=== PATIENT | female | born 1970 | race Hispanic/Latino ===

== ENCOUNTER 2019-01-14 11:05 | Emergency (ER) | payer BC, OTHER ==
[~2019-01-14] VITALS: Ht 165.1 cm; Wt 130.2 kg
[2019-01-14] MEDS ORDERED: SODIUM CHLORIDE 0.9% 1000ML 1,000 ML IV STA ×2 (11:21→12:31)
[2019-01-14] MEDS ORDERED: FAMOTIDINE 20 MG/2 ML VIAL IV ONE (11:30)
[2019-01-14] MEDS ORDERED: ONDANSETRON HCL INJ 2MG/ML 2ML 2 MG/ML VIAL IV ONE (11:30)
--- NOTE | 2019-01-14 12:06 | NUR ---
RIGHT AC IV UNABLE TO FLUSH AFTER CT MACHINE TEST INJECTION. IV D/C, CATH INTACT. BLEEDING CONTROLLED, DRESSING APPLIED, DRY AND INTACT. SITE WITHOUT REDNESS, SWELLING OR DRAINAGE.
--- NOTE | 2019-01-14 12:52 | NUR ---
NOTIFIED DR GARDUNO LEFT AC IV NOT FLUSHING. STATES OK TO D/C IV FLUID ORDER AT THIS TIME.
--- OUTSIDE RECORDS SUMMARY | 2019-01-14 13:02 | XMS REPORT | Continuity of Care Document ---
Author Author Sanjuana jessee [facility] Interface Address Unknown Phone Unavailable Problems Problem Status Onset Date Classification Date Reported Comments Source Acute maxillary sinusitis 10/20/2016 Diagnosis 10/20/2016 [facility] Eustachian tube disorder 10/20/2016 Diagnosis 10/20/2016 [facility] Acute sinusitis 05/23/2016 Diagnosis 05/23/2016 [facility] Allergic rhinitis 05/23/2016 Diagnosis 05/23/2016 [facility] UNK Active 04/08/2016 [facility] Discharge Diagnosis: Generalized abdominal pain 03/21/2016 03/24/2016 [facility] Discharge Diagnosis: Vomiting, unspecified 03/21/2016 03/24/2016 [facility] Discharge Diagnosis: Diarrhea, unspecified 03/21/2016 03/24/2016 [facility] SOB Active 03/21/2016 [facility] Discharge Diagnosis: Vaginal bleeding 03/17/2016 03/20/2016 [facility] Discharge Diagnosis: Vaginal discharge 03/17/2016 03/20/2016 [facility] Discharge Diagnosis: Acute UTI 03/17/2016 03/20/2016 [facility] BLADDER PAIN Active 03/17/2016 [facility] Ovarian cystic mass Resolved Problem 04/14/2016 [facility] Sleep apnea<sup>1</sup> Resolved Problem 04/14/2016 Does not use CPAP [facility] Tear of vaginal muscle Active Problem 04/14/2016 [facility] Hypothyroidism Problem 10/20/2016 [facility] Acute Suppurative Otitis Media without Spontaneous Rupture of Ear Drum Problem 10/20/2016 [facility] Common Cold Problem 10/20/2016 [facility] Acute Sinusitis Problem 10/20/2016 [facility] Acute Tonsillitis Problem 10/20/2016 [facility] Acute Upper Respiratory Infection Problem 10/20/2016 [facility] Allergic Rhinitis Problem 10/20/2016 [facility] Influenza with Respiratory Manifestation Other than Pneumonia Problem 10/20/2016 [facility] Medications Medication Details Route Status Patient Instructions Ordering Provider Order Date Source Dexamethasone 4 mg, 1 mL, Route: IVP, Drug form: INJ, ONCE, Dosing Weight 115, kg, PRN Nausea & Vomiting, Start date: 04/11/16 13:48:00 CDTNotes: Concentration: 4mg/ml Inactive 04/11/2016 [facility] Ondansetron 4 mg, 2 mL, Route: IVP, Drug form: INJ, ONCE, Dosing Weight 115, kg, PRN Nausea & Vomiting, Start date: 04/11/16 13:48:00 CDTNotes: (Same as: Zofran) MEDICATION WASTE Product Size: 4 mg Pr oduct Wasted: ___ mg Inactive 04/11/2016 [facility] 72 HR Scopolamine 0.0139 MG/HR Transdermal Patch 1 patch, Route: TOP, Drug Form: ERFILM, Dosing Weight 115, kg, ONCE, Apply behind ear. Avoid use in elderly., Start date: 04/11/16 13:48:00 CDT, Stop date: 04/11/16 13:48:00 CDTNotes: Change patch every 72 hours (Same as: Transderm-Scop) Inactive 04/11/2016 [facility] Promethazine 6.25 mg, 0.25 mL, Route: IVPB, ONCE, Dosing Weight 115, kg, PRN Nausea & Vomiting, Start date: 04/11/16 13:48:00 CDTNotes: Do not give IV push. (Same as: Phenergan) Inactive 04/11/2016 [facility] Naloxone 0.4 mg, 1 mL, Route: IVP, Drug form: INJ, Q2MIN, Dosing Weight 115, kg, PRN Narcotic Reversal, Start date: 04/11/16 13:48:00 CDT, Duration: 8 doses or times, Stop date: Limited # of timesNotes: Same as Narcan Inactive 04/11/2016 [facility] Fentanyl 50 microgram, 1 mL, Route: IVP, Drug form: INJ, Q5Min, Dosing Weight 115, kg, PRN Pain Score 7-10, Start date: 04/11/16 13:48:00 CDT, Duration: 2 doses or times, Stop date: Limited # of timesNotes: ( Same as: Sublimaze) Preservative free. Inactive 04/11/2016 [facility] Flumazenil 0.2 mg, 2 mL, Route: IVP, Drug form: INJ, PRN, Dosing Weight 115, kg, PRN Benzodiazepine Reversal, Initial dose, Start date: 04/11/16 13:48:00 CDT, Duration: 30 day, Stop date: 05/11/16 13:47:00 CDTNotes: (Same as: Romazicon) Inactive 04/11/2016 [facility] 200 ACTUAT Albuterol 0.09 MG/ACTUAT Metered Dose Inhaler 2 puff, Route: INHALER, Drug Form: AERO/A, Dosing Weight 115, kg, Q5Min, PRN Wheezing, Start date: 04/11/16 13:48:00 CDT, Duration: 4 doses or times, Stop date: Limited # of timesNotes: Albuterol 90 microgram/inh 8gm HFA WASTE: Aerosol - Return to Pharmacy Same as: Mitch King Inactive 04/11/2016 [facility] Levalbuterol 0.63 mg, 3 mL, Route: NEB, Drug form: SOLN, Q20Min, Dosing Weight 115, kg, PRN Wheezing, Start date: 04/11/16 13:48:00 CDT, Duration: 4 doses or times, Stop date: Limited # of timesNotes: SEE RT DOCU MENTATION (Same as:Xopenex) Non-Formulary Inactive 04/11/2016 [facility] Albuterol 0.83 MG/ML Inhalant Solution 2.49 mg, 3 mL, Route: NEB, Drug form: SOLN, PRN, Dosing Weight 115, kg, PRN Respiratory Protocol, Start date: 04/11/16 13:48:00 CDT, Duration: 30 day, Stop date: 05/11/16 13:47:00 CDTNotes: SEE RT DOCUMENTATION (Same as: Provenyesica) Inactive 04/11/2016 [facility] Oxycodone 5 mg, 5 mL, Route: NG, Drug form: LIQ, Q4H, Dosing Weight 115, kg, PRN Pain Score 4-6, Start date: 04/11/16 13:48:00 CDT, Duration: 30 day, Stop date: 05/11/16 13:47:00 CDTNotes: (Same as: 'Roxicodone) Inactive 04/11/2016 [facility] Acetaminophen 1,000 mg, 2 tab, Route: PO, Drug form: TAB, ONCE, Dosing Weight 115, kg, PRN Pain Score 1-3, Start date: 04/11/16 13:48:00 CDT, Duration: 1 doses or times, Stop date: Limited # of timesNotes: Max acetam inophen 4000 mg/day (4 gm/day). (Same as: Tylenol Extra Strength) Inactive 04/11/2016 [facility] Labetalol 10 mg, 2 mL, Route: IVP, Drug form: INJ, Q5Min, Dosing Weight 115, kg, PRN Elevated BP, Start date: 04/11/16 13:48:00 CDT, Duration: 5 doses or times, Stop date: Limited # of timesNotes: (Same as: Normo dyne, Trandate) Push over 2 minutes Give bolus over 2-3 minutes. Inactive 04/11/2016 [facility] Hydralazine 10 mg, 0.5 mL, Route: IVP, Drug form: INJ, Q20Min, Dosing Weight 115, kg, PRN Elevated BP, Start date: 04/11/16 13:48:00 CDT, Duration: 2 doses or times, Stop date: Limited # of timesNotes: (Same as: Apresoline) Push over 5 minutes Inactive 04/11/2016 [facility] Hydromorphone 0.5 mg, 0.5 mL, Route: IVP, Drug form: INJ, Q5Min, Dosing Weight 115, kg, PRN Pain Score 7-10, Start date: 04/11/16 13:48:00 CDT, Duration: 4 doses or times, Stop date: Limited # of times Inactive 04/11/2016 [facility] ceFAZolin (ANES) Route: IV, Drug form: INJ, ONCE, Stop date: 04/11/16 13:09:00 CDT Inactive 04/11/2016 [facility] ondansetron (ANES) Route: IV, Drug form: INJ, ONCE, Stop date: 04/11/16 13:09:00 CDT Inactive 04/11/2016 [facility] hydromorphone (ANES) Route: IV, Drug form: INJ, ONCE, Stop date: 04/11/16 13:09:00 CDT Inactive 04/11/2016 [facility] acetaminophen (ANES) Route: IV, Drug form: INJ, ONCE, Stop date: 04/11/16 13:09:00 CDT Inactive 04/11/2016 [facility] dexamethasone (ANES) Route: IV, Drug form: INJ, ONCE, Stop date: 04/11/16 13:09:00 CDT Inactive 04/11/2016 [facility] propofol (ANES) Route: IV, Drug form: INJ, ONCE, Stop date: 04/11/16 13:04:00 CDT Inactive 04/11/2016 [facility] lidocaine (ANES) Route: IV, Drug form: INJ, ONCE, Stop date: 04/11/16 13:04:00 CDT Inactive 04/11/2016 [facility] midazolam (ANES) Route: IV, Drug form: SOLN, ONCE, Stop date: 04/11/16 13:04:00 CDT Inactive 04/11/2016 [facility] fentaNYL (ANES) Route: IV, Drug form: INJ, ONCE, Stop date: 04/11/16 13:04:00 CDT Inactive 04/11/2016 [facility] LR 1000 mL INJ (ANES) Route: IV, Total Volume: 1,000, Start date: 04/11/16 12:06:00 CDT, Stop date: 04/11/16 13:06:00 CDT Inactive 04/11/2016 [facility] Sodium Chloride 0.154 MEQ/ML Injectable Solution 1,000 mL, Rate: 25 ml/hr, Infuse over: 40 hr, Route: IV, Dosing Weight 115 kg, Total Volume: 1,000, Start date: 04/11/16 10:05:00 CDT, Duration: 30 day, Stop date: 05/11/16 10:04:00 CDT Inactive 04/11/2016 [facility] Calcium Chloride 0.0014 MEQ/ML / Potassium Chloride 0.004 MEQ/ML / Sodium Chloride 0.103 MEQ/ML / Sodium Lactate 0.028 MEQ/ML Injectable Solution 1,000 mL, Rate: 25 ml/hr, Infuse over: 40 hr, Route: IV, Dosing Weight 115 kg, Total Volume: 1,000, Start date: 04/11/16 10:05:00 CDT, Duration: 30 day, Stop date: 05/11/16 10:04:00 CDT Inactive 04/11/2016 [facility] Metronidazole 500 MG Oral Tablet [Flagyl] 500 mg=1 tab, PO, Q8H, X 7 day, # 21 tab, 0 Refill(s) Active 03/22/2016 [facility] Dicyclomine Hydrochloride 20 MG Oral Tablet [Bentyl] 20 mg=1 tab, PO, TID-Before Meals, # 6 tab, 0 Refill(s) Active 03/22/2016 [facility] ciprofloxacin 500 mg oral tablet 500 mg=1 tab, PO, Q12H, X 7 day, # 14 tab, 0 Refill(s) Active 03/22/2016 [facility] Zofran 4 mg, 2 mL, Route: IVP, Drug form: INJ, ONCE, Dosing Weight 95.455, kg, Priority: STAT, Start date: 03/21/16 17:26:00 CDT, Stop date: 03/21/16 17:26:00 CDTNotes: (Same as: Zofran) MEDICATION WASTE Product Size: 4 mg Product Wasted: ___ mg Inactive 03/21/2016 [facility] Morphine 4 mg, 2 mL, Route: IVP, Drug form: INJ, ONCE, Dosing Weight 95.455, kg, Priority: STAT, Start date: 03/21/16 17:26:00 CDT, Stop date: 03/21/16 17:26:00 CDTNotes: (Same as:MORPhine Sulfate) Inactive 03/21/2016 [facility] Ondansetron 4 mg, 2 mL, Route: IVP, Drug form: INJ, ONCE, Dosing Weight 95.455, kg, Priority: STAT, Start date: 03/21/16 15:14:00 CDT, Stop date: 03/21/16 15:14:00 CDTNotes: (Same as: Zofran) MEDICATION WASTE Product Size: 4 mg Product Wasted: ___ mg Inactive 03/21/2016 [facility] GI cocktail 30 mL, Route: PO, Drug Form: SUSP, Dosing Weight 95.455, kg, ONCE, STAT, Start date: 03/21/16 15:14:00 CDT, Stop date: 03/21/16 15:14:00 CDTNotes: G.I. Cocktail=antacid with simethicone 22.5 mL - lidocaine viscous 7.5 mL Inactive 03/21/2016 [facility] Famotidine 20 mg, 2 mL, Route: IVP, Drug form: INJ, ONCE, Dosing Weight 95.455, kg, Priority: STAT, Start date: 03/21/16 15:14:00 CDT, Stop date: 03/21/16 15:14:00 CDTNotes: (Same as: Pepcid) Can be dilute in 5-10cc NS IVP: Slow IV push over at least 2 minutes. Inactive 03/21/2016 [facility] Morphine 4 mg, 2 mL, Route: IVP, Drug form: INJ, ONCE, Dosing Weight 95.455, kg, Priority: STAT, Start date: 03/21/16 15:14:00 CDT, Stop date: 03/21/16 15:14:00 CDTNotes: (Same as:MORPhine Sulfate) Inactive 03/21/2016 [facility] Saline Flush 0.9% 10 mL, Route: IVP, Drug Form: INJ, Dosing Weight 95.455, kg, PRN, PRN Line Flush, Start date: 03/21/16 15:14:00 CDT, Duration: 30 day, Stop date: 04/20/16 15:13:00 CDTNotes: (Same as: BD Posiflush) Inactive 03/21/2016 [facility] Sodium Chloride 0.154 MEQ/ML Injectable Solution 1,000 mL, 2,000 ml/hr, Infuse Over: 30 minutes, Route: IV, 1,000, Drug form: INJ, ONCE, Priority: STAT, Dosing Weight 95.455 kg, Start date: 03/21/16 15:14:00 CDT, Duration: 1 doses or times, Stop date: 03/21/16 15:14:00 CDT Inactive 03/21/2016 [facility] Saline Flush 0.9% 10 mL, Route: IVP, Drug Form: INJ, Dosing Weight 98.636, kg, PRN, PRN Line Flush, Start date: 03/21/16 13:44:00 CDT, Duration: 30 day, Stop date: 04/20/16 13:43:00 CDTNotes: (Same as: BD Posiflush) Inactive 03/21/2016 [facility] tramadol hydrochloride 50 MG Oral Tablet [Ultram] 50 mg=1 tab, PO, Q6H, PRN pain, No driving while under the influence of this medication, X 3 day, # 12 tab, 0 Refill(s) Active 03/17/2016 [facility] Cephalexin 500 MG Oral Capsule [Keflex] 500 mg=1 cap, PO, QID, X 5 day, # 20 cap, 0 Refill(s) Active 03/17/2016 [facility] Rocephin 250 mg, Route: IM, Drug form: PDR/INJ, ONCE, Dosing Weight 98.636, kg, Priority: STAT, Start date: 03/17/16 16:37:00 CDT, Stop date: 03/17/16 16:37:00 CDTNotes: (Same As: Rocephin) Inactive 03/17/2016 [facility] Azithromycin 1,000 mg, 4 tab, Route: PO, Drug form: TAB, ONCE, Dosing Weight 98.636, kg, Start date: 03/17/16 16:37:00 CDT, Stop date: 03/17/16 16:37:00 CDTNotes: Take 1 hour before or 2 hours after meals. (Same As: Zithromax) Inactive 03/17/2016 [facility] Saline Flush 0.9% 10 mL, Route: IVP, Drug Form: INJ, Dosing Weight 98.636, kg, PRN, PRN Line Flush, Start date: 03/17/16 15:16:00 CDT, Duration: 30 day, Stop date: 04/16/16 15:15:00 CDTNotes: (Same as: BD Posiflush) Inactive 03/17/2016 [facility] Oxycodone Hydrochloride 5 MG Oral Tablet 10 mg, Route: PO, Drug form: TAB, ONCE, Dosing Weight 102.756, kg, Start date: 05/10/15 16:20:00, Stop date: 05/10/15 16:20:00 Inactive 05/10/2015 [facility] Oxycodone 5 mg, Route: PO, Drug form: TAB, Q4H, Dosing Weight 102.756, kg, PRN Pain Score 4-6, Start date: 05/10/15 16:14:00, Duration: 30 day, Stop date: 06/09/15 16:13:00 Inactive 05/10/2015 [facility] Acetaminophen 1,000 mg, Route: IVPB, Drug form: INJ, ONCE, Dosing Weight 102.756, kg, PRN Pain Score 1-3, Start date: 05/10/15 16:14:00, Duration: 1 doses or times, Stop date: Limited # of times Inactive 05/10/2015 [facility] Meperidine 12.5 mg, Route: IVP, Q30Min, Dosing Weight 102.756, kg, PRN Other -See Comment, For shivering, Start date: 05/10/15 16:14:00, Duration: 2 doses or times, Stop date: Limited # of times Inactive 05/10/2015 [facility] Flumazenil 0.2 mg, Route: IVP, PRN, Dosing Weight 102.756, kg, PRN Benzodiazepine Reversal, Initial dose, Start date: 05/10/15 16:14:00, Duration: 30 day, Stop date: 06/09/15 16:13:00 Inactive 05/10/2015 [facility] Naloxone 0.04 mg, Route: IVP, Q2MIN, Dosing Weight 102.756, kg, PRN Narcotic Reversal, Start date: 05/10/15 16:14:00, Duration: 8 doses or times, Stop date: Limited # of times Inactive 05/10/2015 [facility] Hydromorphone 0.5 mg, Route: IVP, Q5Min, Dosing Weight 102.756, kg, PRN Pain Score 7-10, Start date: 05/10/15 16:14:00, Duration: 4 doses or times, Stop date: Limited # of times Inactive 05/10/2015 [facility] Fentanyl 50 microgram, Route: IVP, Q5Min, Dosing Weight 102.756, kg, PRN Pain Score 7-10, Start date: 05/10/15 16:14:00, Duration: 2 doses or times, Stop date: Limited # of times Inactive 05/10/2015 [facility] Ondansetron 4 mg, Route: IVP, ONCE, Dosing Weight 102.756, kg, PRN Nausea & Vomiting, Start date: 05/10/15 16:14:00 Inactive 05/10/2015 [facility] Calcium Chloride 0.0014 MEQ/ML / Potassium Chloride 0.004 MEQ/ML / Sodium Chloride 0.103 MEQ/ML / Sodium Lactate 0.028 MEQ/ML Injectable Solution 1,000 mL, Rate: 25 ml/hr, Infuse over: 40 hr, Route: IV, Dosing Weight 102.756 kg, Total Volume: 1,000, Start date: 05/10/15 12:10:00, Duration: 30 day, Stop date: 06/09/15 12:09:00 Inactive 05/10/2015 [facility] Levothyroxine Sodium 0.3 MG Oral Tablet [Synthroid] 300 microgram=1 tab, PO, Daily, # 30 tab, 0 Refill(s) Active 05/09/2015 [facility] Amoxicillin 875 MG / Clavulanate 125 MG Oral Tablet [Augmentin] Augmentin 875 mg-125 mg tablet Take 1 tablet every 12 hours by oral route with meals for 7 days. Active [facility] Fluticasone propionate 0.05 MG/ACTUAT Metered Dose Nasal [place] fluticasone 50 mcg/actuation nasal spray,suspension Active [facility] Prednisone 20 MG Oral Tablet prednisone 20 mg tablet Take 1 tablet twice a day by oral route with meals for 3 days. Active [facility] Levothyroxine Sodium 0.3 MG Oral Tablet [Synthroid] Synthroid 300 mcg tablet Active [facility] Acetaminophen 300 MG / Codeine Phosphate 30 MG Oral Tablet acetaminophen 300 mg-codeine 30 mg tablet Active [facility] Amoxicillin 500 MG Oral Capsule amoxicillin 500 mg capsule Active [facility] Azithromycin 250 MG Oral Tablet azithromycin 250 mg tablet Active [facility] Cephalexin 500 MG Oral Capsule cephalexin 500 mg capsule Active [facility] Ciprofloxacin 500 MG Oral Tablet ciprofloxacin 500 mg tablet Active [facility] Dicyclomine Hydrochloride 20 MG Oral Tablet dicyclomine 20 mg tablet Active [facility] Influenza A virus vaccine, M-Scjkgkoxpn-9 (H1N1)-like virus 0.03 MG/ML / Influenza A virus vaccine, R-Ymmzyafm-938 (H3N2)-like virus 0.03 MG/ML / Influenza B virus vaccine, I-Upvudkatxtebz-7-like virus 0.03 MG/ML Injectable Suspension Fluvirin [id number] 45 mcg (15 mcg x 3)/0.5 mL intramuscular suspension Active [facility] Metronidazole 500 MG Oral Tablet metronidazole 500 mg tablet Active [facility] Nystatin 566201 UNT/ML / Triamcinolone Acetonide 1 MG/ML Topical Cream nystatin-triamcinolone 100,000 unit/g-0.1 % topical cream Active [facility] Levothyroxine Sodium 0.15 MG Oral Tablet [Synthroid] Synthroid 150 mcg tablet Active [facility] tramadol hydrochloride 50 MG Oral Tablet tramadol 50 mg tablet Active [facility] Allergies, Adverse Reactions, Alerts Substance Category Reaction Severity Reaction type Status Date Reported Comments Source Immunizations Immunization Date Given Site Status Last Updated Comments Source influenza, seasonal, injectable 06/22/2010 completed [facility] Results Order Name Results Value Reference Range Date Interpretation Comments Source HEMATOLOGY Monocytes # 0.5 K/CMM 0.0 - 0.8 04/11/2016 [facility] Segs-Bands # 3.1 K/CMM 1.5 - 8.1 04/11/2016 [facility] HEMATOLOGY Lymphocytes # 1.5 K/CMM 1.0 - 5.5 04/11/2016 [facility] HEMATOLOGY Eosinophils # 0.1 K/CMM 0.0 - 0.5 04/11/2016 [facility] Eosinophils 2.7 % 0.0 - 4.0 04/11/2016 [facility] Monocytes 9.7 % 2.0 - 12.0 04/11/2016 [facility] Basophils 0.8 % 0.0 - 1.0 04/11/2016 [facility] Lymphocytes 28.0 % 20.0 - 40.0 04/11/2016 [facility] Segs 58.8 % 45.0 - 75.0 04/11/2016 [facility] MPV 7.2 fL 7.4 - 10.4 04/11/2016 [facility] MCV 88.9 fL 80.0 - 98.0 04/11/2016 [facility] MCH 29.3 pg 27.0 - 31.0 04/11/2016 [facility] WBC 5.3 K/CMM 3.7 - 10.4 04/11/2016 [facility] Hct 40.4 % 36.0 - 48.0 04/11/2016 [facility] Hgb 13.3 g/dL 12.0 - 16.0 04/11/2016 [facility] RBC 4.54 M/CMM 4.20 - 5.40 04/11/2016 [facility] RDW 14.3 % 11.5 - 14.5 04/11/2016 [facility] MCHC 33.0 g/dL 32.0 - 36.0 04/11/2016 [facility] Platelet 232 K/CMM 133 - 450 04/11/2016 [facility] URINE AND STOOL UA Urobilinogen <=1.0 mg/dL 0.1 - 1.0 03/21/2016 [facility] URINE AND STOOL UA Color Ltyellow 03/21/2016 [facility] URINE AND STOOL UA Bili Negative *NA* (03/21/16 4:53 PM) Negative 03/21/2016 [facility] URINE AND STOOL UA Protein Negative mg/dL Negative mg/dL 03/21/2016 [facility] URINE AND STOOL UA Glucose Negative mg/dL Negative mg/dL 03/21/2016 [facility] URINE AND STOOL UA pH 6.0 5.0 - 8.0 03/21/2016 [facility] URINE AND STOOL UA Sq Epi Occasional /LPF Few /LPF 03/21/2016 [facility] URINE AND STOOL UA Nitrite Negative (03/21/16 4:53 PM) Negative 03/21/2016 [facility] URINE AND STOOL UA Leuk Est Moderate *ABN* (03/21/16 4:53 PM) Negative 03/21/2016 [facility] URINE AND STOOL UA Blood Small *ABN* (03/21/16 4:53 PM) Negative 03/21/2016 [facility] URINE AND STOOL UA Ketones Negative mg/dL Negative mg/dL 03/21/2016 [facility] URINE AND STOOL UA WBC 5 /HPF 0 - 5 03/21/2016 [facility] URINE AND STOOL UA RBC 2 /HPF 0 - 2 03/21/2016 [facility] URINE AND STOOL UA Spec Grav 1.039 <=1.030 03/21/2016 [facility] URINE AND STOOL UA Turbidity Clear (03/21/16 4:53 PM) Clear 03/21/2016 [facility] URINE CHEM U Preg Negative (03/21/16 4:53 PM) Negative 03/21/2016 [facility] Pelvis w Transvag and Pelvis Doppler US Pelvis w Transvag and Pelvis Doppler US Patient Name: AUSTIN DENSON : 1970; Age: 45 years y/o Female MR: [id number] Study: Pelvis w Transvag and Pelvis Doppler US 03/21/2016 4:27 PM CDT Ordering Physician: Deangelo Solorzano MD Comparison: None Clinical Indication: Generalized abdominal pain; pelvic pain Transabdominal sonography demonstrates unremarkable urinary bladder. The uterus is surgically absent by history. The right ovary measures 3.4 x 2.0 x 2.4 cm. The left ovary is surgically absent by history. Color flow and Doppler arterial flow are noted at the right ovary. Transvaginal sonography demonstrates the uterus to be surgically absent. Calcification is noted at the redundant vaginal cuff tissues. The right ovary measures 1.5 x 1.0 x 1.0 cm. Right ovary is unremarkable sonographically. The left ovary is surgically absent by history. Color flow and Doppler arterial flow are noted at the right ovary. No free fluid or adnexal mass. IMPRESSION: 1. The uterus and left ovary are surgically absent by history. 2. No right ovarian torsion. 3. Punctate dystrophic calcifications are noted at the redundant vaginal cuff tissues. SL: [id number] 03/21/2016 - - Read by: Juancho Gonzales MD Dictated Date/time: 03/21/16 20:06 Electronically Signed by: Juancho Gonzales MD 03/21/16 20:18 FINAL REPORT [facility] CHEM PANEL eGFR 90 mL/min/1.73m2 03/21/2016 Result Comment: The eGFR is calculated using the CKD-EPI formula. In most young, healthy individuals the eGFR will be >90 mL/min/1.73m2. The eGFR declines with age. An eGFR of 60-89 may be normal in some populations, particularly the elderly, for whom the CKD-EPI formula has not been extensively validated. Use of the eGFR is not recommended in the following populations: Individuals with unstable creatinine concentrations, including patients and those with serious co-morbid conditions. Patients with extremes in muscle mass or diet. The data above are obtained from the National Kidney Disease Education Program (NKDEP) which additionally recommends that when the eGFR is used in patients with extremes of body mass index for purposes of drug dosing, the eGFR should be multiplied by the estimated BMI. [facility] CHEM PANEL Albumin Lvl 4.1 g/dL 3.5 - 5.0 03/21/2016 [facility] CHEM PANEL Alk Phos 114 unit/L 39 - 136 03/21/2016 [facility]M PANEL CO2 20 meq/L 24 - 32 03/21/2016 [facility] CHEM PANEL BUN 12 mg/dL 7 - 22 03/21/2016 [facility] CHEM PANEL Creatinine Lvl 0.79 mg/dL 0.50 - 1.40 03/21/2016 [facility] CHEM PANEL Bili Total 0.5 mg/dL 0.2 - 1.3 03/21/2016 [facility] CHEM PANEL A/G Ratio 0.8 0.7 - 1.6 03/21/2016 [facility] CHEM PANEL Total Protein 9.1 g/dL 6.4 - 8.4 03/21/2016 [facility] CHEM PANEL Globulin 5.0 g/dL 2.7 - 4.2 03/21/2016 [facility] CHEM PANEL AGAP 13.7 meq/L 10.0 - 20.0 03/21/2016 [facility] CHEM PANEL Potassium Lvl 3.7 meq/L 3.5 - 5.1 03/21/2016 [facility] CHEM PANEL Chloride Lvl 101 meq/L 95 - 109 03/21/2016 [facility] CHEM PANEL Sodium Lvl 131 meq/L 135 - 145 03/21/2016 [facility] CHEM PANEL Glucose Lvl 132 mg/dL 70 - 99 03/21/2016 [facility] CHEM PANEL Calcium Lvl 9.1 mg/dL 8.5 - 10.5 03/21/2016 [facility] CHEM PANEL ALT 57 unit/L 0 - 65 03/21/2016 [facility] CHEM PANEL AST 42 unit/L 0 - 37 03/21/2016 [facility] CHEM PANEL B/C Ratio 15 6 - 25 03/21/2016 [facility] CHEM PANEL Lipase Lvl 132 unit/L 73 - 393 03/21/2016 [facility] CHEM PANEL Amylase Lvl 209 unit/L 25 - 115 03/21/2016 [facility] HEMATOLOGY Segs 71.8 % 45.0 - 75.0 03/21/2016 [facility] HEMATOLOGY Monocytes 6.9 % 2.0 - 12.0 03/21/2016 [facility] HEMATOLOGY Lymphocytes 20.1 % 20.0 - 40.0 03/21/2016 [facility] HEMATOLOGY Basophils 0.6 % 0.0 - 1.0 03/21/2016 [facility] HEMATOLOGY Segs-Bands # 5.9 K/CMM 1.5 - 8.1 03/21/2016 [facility] HEMATOLOGY Eosinophils 0.6 % 0.0 - 4.0 03/21/2016 [facility] HEMATOLOGY Basophils # 0.1 K/CMM 0.0 - 0.2 03/21/2016 [facility] HEMATOLOGY Lymphocytes # 1.7 K/CMM 1.0 - 5.5 03/21/2016 [facility] HEMATOLOGY Monocytes # 0.6 K/CMM 0.0 - 0.8 03/21/2016 [facility] HEMATOLOGY MCH 29.5 pg 27.0 - 31.0 03/21/2016 [facility] HEMATOLOGY MCHC 33.5 g/dL 32.0 - 36.0 03/21/2016 [facility] RDW 14.7 % 11.5 - 14.5 03/21/2016 [facility] Platelet 281 K/CMM 133 - 450 03/21/2016 [facility] MPV 7.1 fL 7.4 - 10.4 03/21/2016 [facility] Hct 42.5 % 36.0 - 48.0 03/21/2016 [facility] MCV 88.0 fL 80.0 - 98.0 03/21/2016 [facility] RBC 4.83 M/CMM 4.20 - 5.40 03/21/2016 [facility] Hgb 14.2 g/dL 12.0 - 16.0 03/21/2016 [facility] WBC 8.3 K/CMM 3.7 - 10.4 03/21/2016 [facility] ED Abdomen/Pelvis IV contrast only CT ED Abdomen/Pelvis IV contrast only CT ED Abdomen/Pelvis IV contrast only CT TECHNIQUE: Contiguous transaxial images of the abdomen and pelvis were performed from the lung bases to the superior pubic rami with IV contrast. NOTE: Oral contrast was not administered. This limits evaluation of bowel. CLINICAL HX: Abdominal pain, acute; COMPARISON: None CT ABDOMEN: Lower Chest: The lung bases are clear. GI Tract: Bowel gas pattern is unremarkable. Small ventral abdominal hernia containing mesenteric fat. No bowel herniation is noted. There is no evidence for free fluid or free air in the abdomen. Tract and retroperitoneum: The kidneys demonstrate normal morphology and symmetric excretion. No significant retroperitoneal lymphadenopathy is noted. Abdominal viscera: The liver demonstrates normal morphology. The spleen, pancreas, and both adrenals are unremarkable in appearance. Status post cholecystectomy. Vasculature: Aorta demonstrates normal morphology. Bone and Soft tissues: No significant bony abnormality is noted. CT PELVIS: The bladder demonstrates normal morphology. Uterus is not visualized suggesting hysterectomy. There is increased fullness in the region of the perineum. No free fluid is present in the pelvis. IMPRESSION: Small ventral abdominal hernia containing mesenteric fat. No bowel herniation. Increased fullness in the region of the perineum. Correlation with clinical exam is recommended. Further evaluation may be obtained with pelvic sonography as clinically indicated. Status post cholecystectomy. No other significant abnormality is noted on the contrast CT of abdomen and pelvis. SL: [id number] 03/21/2016 - - Read by: Varinder Pérez MD Dictated Date/time: 08/12/16 16:02 Electronically Signed by: Varinder Pérez MD 03/21/16 16:23 FINAL REPORT [facility] MOLECULAR DIAGNOSTIC C trachomatis by Amp Det (APTIMA) Negative *NA* (03/17/16 4:31 PM) Negative 03/17/2016 [facility] MOLECULAR DIAGNOSTIC N gonorrhea by Amp Det (APTIMA) Negative *NA* (03/17/16 4:31 PM) Negative 03/17/2016 [facility] MOLECULAR DIAGNOSTIC Source APTIMA Endocervix *NA* (03/17/16 4:31 PM) 03/17/2016 [facility] CHEM PANEL B/C Ratio 17 6 - 25 03/17/2016 [facility] CHEM PANEL AGAP 11.9 meq/L 10.0 - 20.0 03/17/2016 [facility] CHEM PANEL Globulin 4.8 g/dL 2.7 - 4.2 03/17/2016 [facility] CHEM PANEL A/G Ratio 0.8 0.7 - 1.6 03/17/2016 [facility] CHEM PANEL eGFR 102 mL/min/1.73m2 03/17/2016 Result Comment: The eGFR is calculated using the CKD-EPI formula. In most young, healthy individuals the eGFR will be >90 mL/min/1.73m2. The eGFR declines with age. An eGFR of 60-89 may be normal in some populations, particularly the elderly, for whom the CKD-EPI formula has not been extensively validated. Use of the eGFR is not recommended in the following populations: Individuals with unstable creatinine concentrations, including patients and those with serious co-morbid conditions. Patients with extremes in muscle mass or diet. The data above are obtained from the National Kidney Disease Education Program (NKDEP) which additionally recommends that when the eGFR is used in patients with extremes of body mass index for purposes of drug dosing, the eGFR should be multiplied by the estimated BMI. [facility] CHEM PANEL ALT 32 unit/L 0 - 65 03/17/2016 [facility] CHEM PANEL Albumin Lvl 3.6 g/dL 3.5 - 5.0 03/17/2016 [facility] CHEM PANEL Total Protein 8.4 g/dL 6.4 - 8.4 03/17/2016 [facility] CHEM PANEL Calcium Lvl 8.8 mg/dL 8.5 - 10.5 03/17/2016 [facility] CHEM PANEL CO2 24 meq/L 24 - 32 03/17/2016 [facility] CHEM PANEL AST 20 unit/L 0 - 37 03/17/2016 [facility] CHEM PANEL Bili Total 0.3 mg/dL 0.2 - 1.3 03/17/2016 [facility] CHEM PANEL Alk Phos 104 unit/L 39 - 136 03/17/2016 [facility] CHEM PANEL Creatinine Lvl 0.71 mg/dL 0.50 - 1.40 03/17/2016 [facility] CHEM PANEL Glucose Lvl 86 mg/dL 70 - 99 03/17/2016 [facility] CHEM PANEL BUN 12 mg/dL 7 - 22 03/17/2016 [facility] CHEM PANEL Sodium Lvl 135 meq/L 135 - 145 03/17/2016 [facility] CHEM PANEL Chloride Lvl 103 meq/L 95 - 109 03/17/2016 [facility] CHEM PANEL Potassium Lvl 3.9 meq/L 3.5 - 5.1 03/17/2016 [facility] MPV 6.9 fL 7.4 - 10.4 03/17/2016 [facility] MCHC 33.6 g/dL 32.0 - 36.0 03/17/2016 [facility] RDW 14.9 % 11.5 - 14.5 03/17/2016 [facility] Platelet 238 K/CMM 133 - 450 03/17/2016 [facility] Hct 38.4 % 36.0 - 48.0 03/17/2016 [facility] MCV 89.1 fL 80.0 - 98.0 03/17/2016 [facility] MCH 29.9 pg 27.0 - 31.0 03/17/2016 [facility] WBC 8.5 K/CMM 3.7 - 10.4 03/17/2016 [facility] RBC 4.31 M/CMM 4.20 - 5.40 03/17/2016 [facility] Hgb 12.9 g/dL 12.0 - 16.0 03/17/2016 [facility] HEMATOLOGY Eosinophils # 0.2 K/CMM 0.0 - 0.5 03/17/2016 [facility] Lymphocytes # 2.2 K/CMM 1.0 - 5.5 03/17/2016 [facility] Monocytes # 0.7 K/CMM 0.0 - 0.8 03/17/2016 [facility] HEMATOLOGY Segs 63.8 % 45.0 - 75.0 03/17/2016 [facility] Lymphocytes 25.9 % 20.0 - 40.0 03/17/2016 [facility] HEMATOLOGY Monocytes 8.1 % 2.0 - 12.0 03/17/2016 [facility] HEMATOLOGY Eosinophils 1.8 % 0.0 - 4.0 03/17/2016 [facility] HEMATOLOGY Basophils 0.4 % 0.0 - 1.0 03/17/2016 [facility] HEMATOLOGY Segs-Bands # 5.4 K/CMM 1.5 - 8.1 03/17/2016 [facility] URINE AND STOOL UA Urobilinogen <=1.0 mg/dL 0.1 - 1.0 03/17/2016 [facility] URINE AND STOOL UA Color Ltyellow 03/17/2016 [facility] URINE AND STOOL UA Blood Moderate *ABN* (03/17/16 3:31 PM) Negative 03/17/2016 [facility] URINE AND STOOL UA Bili Negative *NA* (03/17/16 3:31 PM) Negative 03/17/2016 [facility] URINE AND STOOL UA Glucose Negative mg/dL Negative mg/dL 03/17/2016 [facility] URINE AND STOOL UA Protein Negative mg/dL Negative mg/dL 03/17/2016 [facility] URINE AND STOOL UA RBC 4 /HPF 0 - 2 03/17/2016 [facility] URINE AND STOOL UA Bacteria Occasional /HPF None Seen /HPF 03/17/2016 [facility] URINE AND STOOL UA Mucus Few /LPF None Seen /LPF 03/17/2016 [facility] URINE AND STOOL UA Nitrite Negative (03/17/16 3:31 PM) Negative 03/17/2016 [facility] URINE AND STOOL UA Leuk Est Large *ABN* (03/17/16 3:31 PM) Negative 03/17/2016 [facility] URINE AND STOOL UA Sq Epi Few /LPF Few /LPF 03/17/2016 [facility] URINE AND STOOL UA WBC 36 /HPF 0 - 5 03/17/2016 [facility] URINE AND STOOL UA pH 6.0 5.0 - 8.0 03/17/2016 [facility] URINE AND STOOL UA Spec Grav 1.013 <=1.030 03/17/2016 [facility] URINE AND STOOL UA Turbidity Clear (03/17/16 3:31 PM) Clear 03/17/2016 [facility] URINE AND STOOL UA Ketones Negative mg/dL Negative mg/dL 03/17/2016 [facility] HEMATOLOGY Monocytes 8.9 % 2.0 - 12.0 05/09/2015 [facility] HEMATOLOGY Eosinophils 2.1 % 0.0 - 4.0 05/09/2015 [facility] HEMATOLOGY Segs-Bands # 3.8 K/CMM 1.5 - 8.1 05/09/2015 [facility] HEMATOLOGY Basophils 0.7 % 0.0 - 1.0 05/09/2015 [facility] HEMATOLOGY Lymphocytes 25.0 % 20.0 - 40.0 05/09/2015 [facility] HEMATOLOGY Monocytes # 0.5 K/CMM 0.0 - 0.8 05/09/2015 [facility] HEMATOLOGY Lymphocytes # 1.5 K/CMM 1.0 - 5.5 05/09/2015 [facility] HEMATOLOGY Eosinophils # 0.1 K/CMM 0.0 - 0.5 05/09/2015 [facility] HEMATOLOGY Segs 63.3 % 45.0 - 75.0 05/09/2015 [facility] MPV 7.6 fL 7.4 - 10.4 05/09/2015 [facility] WBC 6.0 K/CMM 3.7 - 10.4 05/09/2015 [facility] RBC 4.12 M/CMM 4.20 - 5.40 05/09/2015 [facility] MCHC 32.4 g/dL 32.0 - 36.0 05/09/2015 [facility] HEMATOLOGY RDW 14.0 % 11.5 - 14.5 05/09/2015 [facility] Platelet 209 K/CMM 133 - 450 05/09/2015 [facility] Hgb 12.9 g/dL 12.0 - 16.0 05/09/2015 [facility] MCH 31.2 pg 27.0 - 31.0 05/09/2015 [facility] HEMATOLOGY Hct 39.7 % 36.0 - 48.0 05/09/2015 [facility] HEMATOLOGY MCV 96.4 fL 80.0 - 98.0 05/09/2015 [facility] Vital Signs Vital Sign Value Date Comments Source Diastolic (mm Hg) 80 10/20/2016 [facility] Height 65 10/20/2016 [facility] Systolic (mm Hg) 116 10/20/2016 [facility] Weight 218 10/20/2016 [facility] Diastolic (mm Hg) 72 05/23/2016 [facility] Height 65 05/23/2016 [facility] Systolic (mm Hg) 110 05/23/2016 [facility] Weight 233 05/23/2016 [facility] Systolic (mm Hg) 94 04/11/2016 [facility] Diastolic (mm Hg) 55 04/11/2016 [facility] Systolic (mm Hg) 93 04/11/2016 [facility] Diastolic (mm Hg) 61 04/11/2016 [facility] Systolic (mm Hg) 98 04/11/2016 [facility] Diastolic (mm Hg) 57 04/11/2016 [facility] Respitory Rate 16 04/11/2016 [facility] Respitory Rate 13 04/11/2016 [facility] Respitory Rate 13 04/11/2016 [facility] Height 167.64 cm 04/11/2016 [facility] BMI Calculated 40.92 04/11/2016 [facility] Weight 115 04/11/2016 [facility] Heart Rate 75 04/11/2016 [facility] Temperature Oral (F) 97.8 F 04/11/2016 [facility] Respitory Rate 18 03/22/2016 [facility] Heart Rate 78 03/22/2016 [facility] Temperature Oral (F) 98.3 F 03/22/2016 [facility] Systolic (mm Hg) 117 03/22/2016 [facility] Diastolic (mm Hg) 58 03/22/2016 [facility] Heart Rate 74 03/21/2016 [facility] Temperature Oral (F) 98.7 F 03/21/2016 [facility] Systolic (mm Hg) 106 03/21/2016 [facility] Diastolic (mm Hg) 67 03/21/2016 [facility] Respitory Rate 15 03/21/2016 [facility] BMI Calculated 33.97 03/21/2016 [facility] Weight 95.455 03/21/2016 [facility] Temperature Oral (F) 98.4 F 03/21/2016 [facility] Heart Rate 98 03/21/2016 [facility] Respitory Rate 18 03/21/2016 [facility] Height 167.64 cm 03/21/2016 [facility] Systolic (mm Hg) 127 03/21/2016 [facility] Diastolic (mm Hg) 89 03/21/2016 [facility] Temperature Oral (F) 98.6 F 03/17/2016 [facility] Systolic (mm Hg) 127 03/17/2016 [facility] Diastolic (mm Hg) 70 03/17/2016 [facility] Respitory Rate 19 03/17/2016 [facility] Heart Rate 74 03/17/2016 [facility] Respitory Rate 18 03/17/2016 [facility] Height 165.1 cm 03/17/2016 [facility] BMI Calculated 36.19 03/17/2016 [facility] Temperature Oral (F) 98.1 F 03/17/2016 [facility] Weight 98.636 03/17/2016 [facility] Systolic (mm Hg) 113 03/17/2016 [facility] Diastolic (mm Hg) 77 03/17/2016 [facility] Heart Rate 80 03/17/2016 [facility] Systolic (mm Hg) 102 05/10/2015 [facility] Diastolic (mm Hg) 57 05/10/2015 [facility] Systolic (mm Hg) 96 05/10/2015 [facility] Diastolic (mm Hg) 51 05/10/2015 [facility] Systolic (mm Hg) 106 05/10/2015 [facility] Diastolic (mm Hg) 57 05/10/2015 [facility] Respitory Rate 14 05/10/2015 [facility] Respitory Rate 13 05/10/2015 [facility] Respitory Rate 12 05/10/2015 [facility] Heart Rate 73 05/09/2015 [facility] Temperature Oral (F) 97.8 F 05/09/2015 [facility] Height 167.64 cm 05/09/2015 [facility] BMI Calculated 36.56 05/09/2015 [facility] Weight 102.756 05/09/2015 [facility] Encounters Location Location Details Encounter Type Encounter Number Reason For Visit Attending Provider ADM Date DC Date Status Source [facility] [id number] Hortencia Gonzales 05/29/2014 05/30/2014 [facility] OBS Day Surgery [id number] Kierra Gant 05/10/2015 05/10/2015 [facility] [id number] Antoine Stephens 03/17/2016 03/17/2016 [facility] Emergency [id number] Aaron Prieto 03/21/2016 03/22/2016 [facility] Day Surgery [id number] Elias Ricci 04/11/2016 04/11/2016 [facility] [place] [facility] - [id number] Maza, [employer]ER: [address] [place] [address], Ph. [phone] [id number] Colleen Maza 05/23/2016 [facility] [place] [facility] [id number] Peck: [address] [facility], [place] [address], Ph. [id number] Janina Stephens 10/20/2016 [facility] Procedures Procedure Code Date Perfomer Comments Source Hysterectomy 02/04/2011 [facility] Bilateral tubal ligation [id number] 08/10/2006 [facility] Cholecystectomy [id number] 08/10/2006 [facility] Hysterectomy [id number] [facility] Operation [id number] [facility] Oophorectomy [id number] [facility] Cholecystectomy [facility]
--- OUTSIDE RECORDS SUMMARY | 2019-01-14 13:02 | XMS REPORT | Encounter Summary ---
Author Organization Unknown Address [address] [place] [address] Phone [phone] Reason for Visit Medical Complaint Instructions 1. Acute sinusitis Augmentin 875 mg-125 mg tablet sinusitis: care instructions 2. Allergic rhinitis fluticasone 50 mcg/actuation nasal spray,suspension 3. Hypothyroidism Synthroid 300 mcg tablet Discussion Note Medications as directed, increase fluids, rest. Tylenol/ibuprofen as needed for pain. Follow up with PCP in 2-3 days, or sooner with worsening symptoms. Plan of Care Patient Instructions see handout Reminders Provider Appointments None recorded. Lab None recorded. Referral None recorded. Procedures None recorded. Surgeries None recorded. Imaging None recorded. Medications Name Start Date acetaminophen 300 mg-codeine 30 mg tablet amoxicillin 500 mg capsule Augmentin 875 mg-125 mg tablet Take 1 tablet every 12 hours by oral route for 7 days. azithromycin 250 mg tablet cephalexin 500 mg capsule ciprofloxacin 500 mg tablet dicyclomine 20 mg tablet fluticasone 50 mcg/actuation nasal spray,suspension Inhale 2 sprays every day by intranasal route as needed. Fluvirin [id number] 45 mcg (15 mcg x 3)/0.5 mL intramuscular suspension metronidazole 500 mg tablet nystatin-triamcinolone 100,000 unit/g-0.1 % topical cream prednisone 20 mg tablet Synthroid 150 mcg tablet Synthroid 300 mcg tablet Take 1 tablet every day by oral route for 30 days. tramadol 50 mg tablet Medications Administered None recorded. Vitals Height Weight BMI Blood Pressure 5 ft 5 in 233 lbs 38.8 110/72 Lab Results None recorded. Allergies None recorded. Problems Name Status Onset Date Source Hypothyroidism Active Encounter Acute Suppurative Otitis Media without Spontaneous Rupture of Ear Drum Active Encounter Common Cold Active Encounter Acute Sinusitis Active Encounter Acute Tonsillitis Active Encounter Acute Upper Respiratory Infection Active Encounter Allergic Rhinitis Active Encounter Influenza with Respiratory Manifestation Other than Pneumonia Active Encounter Procedures Date Name Performed by 02/04/2011 Hysterectomy Information not available Cholecystectomy Information not available Vaccine List Vaccine Type influenza, seasonal, injectable 06/22/2010 Social History Smoking Status Never Smoker Past Encounters 05/23/2016 Acute Sinusitis; Allergic Rhinitis; Hypothyroidism Colleen Maza NP: [id number] [place] [address], Ph. History of Present Illness [id number] Reported By: Patient HPI: Location: head/sinuses. Quality: productive cough, colored phlegm, nasal/sinus congestion. Duration: 14days. Severity: moderate. Onset/Timing: gradual. Context: no sick contacts, no foreign travel, non-smoker. Modifying factors: OTC medication. Associated Symptoms: no shortness of breath, no wheezing, no change in number of pillows needed to sleep at night, no sweats, no significant weight gain, no significant weight loss, no morning cough, no sore throat, no vomiting, no diarrhea, no rash, no nausea, yellow-green, thick sputum, green sputum Review of Systems Basic Reported By: Patient Constitutional: Constitutional: no fever Eyes: Eyes: no eye complaints Xged-[id number]-Blaja-Throat: Ears: no ear complaints. Nose: nose/sinus problems. Mouth/Throat: no sore throat, no bleeding gums, no mouth complaints, no teeth problems Cardiovascular: Cardiovascular: no chest pain, no shortness of breath, no known heart murmur Respiratory: Respiratory: no wheezing, no shortness of breath, cough Gastrointestinal: Gastrointestinal: no abdominal pain, no vomiting / diarrhea Genitourinary: Genitourinary: no urinary complaints, no discharge Musculoskeletal: Musculoskeletal: no muscle aches, no muscle weakness, no arthralgias/joint pain, no back pain Skin: Skin: no abnormal / changing mole, no jaundice, no rashes Neurologic: Neurologic: no loss of consciousness, no weakness, no numbness, no seizures, no dizziness, headache Physical Exam Adult Basic Reported By: Patient Constitutional: General Appearance: healthy-appearing, well-nourished, well-developed. Level of Distress: NAD. Ambulation: ambulating normally Psychiatric: Mental Status: active and alert. Orientation: to time, to place, to person Eyes: Lids and Conjunctivae: non-injected Jru-Edsy-Nwgpa-Throat: Ears: no lesions on external ear, no outer ear tenderness, EACs clear, TMs clear. Nose: no lesions on external nose, nares patent, no septal deviation, nasal passages clear, sinus tenderness, nasal disc harge--purulent, post nasal drip. Lips, Teeth, and Gums: no mouth or lip ulcers, no bleeding gums, normal dentition. Oropharynx: moist mucous membranes, no erythema Neck: Neck: supple. Lymph Nodes: no cervical LAD Lungs: Respiratory effort: no dyspnea, no tachypnea, no use of accessory muscles, no intercostal retractions. Auscultation: breath sounds normal Cardiovascular: Heart Auscultation: RRR, no murmurs Musculoskeletal:: Motor Strength and Tone: normal motor strength, normal tone Neurologic: Gait and Station: normal gait, normal station Skin: Inspection and palpation: no rash, no lesions
--- OUTSIDE RECORDS SUMMARY | 2019-01-14 13:02 | XMS REPORT | Summary of Care ---
Author Author [facility] Organization [facility] Address Unknown Phone Unavailable Encounter YOGESH Flores(CHUCK) [id number] Date(s): 04/11/16 - 04/11/16 [facility] [address] [place] [address]- Discharge Disposition: Home or Self Care Attending Physician: Elias Ricci MD Referring Physician: Elias Ricci MD Vital Signs 1 2 3 Most recent to oldest [Reference Range]: 167.64 cm (04/11/16 8:29 AM) Height 97.8 DegF (04/11/16 8:29 AM) Temperature Oral [96.4-99.1 DegF] 94/55 mmHg (04/11/16 4:00 PM) 93/61 mmHg (04/11/16 3:45 PM) 98/57 mmHg (04/11/16 3:30 PM) Blood Pressure [90-140/60-90 mmHg] 16 BRMIN (04/11/16 2:15 PM) 13 BRMIN *LOW* (04/11/16 2:00 PM) 13 BRMIN *LOW* (04/11/16 1:45 PM) Respiratory Rate [14-20 BRMIN] 75 bpm (04/11/16 8:29 AM) Peripheral Pulse Rate [60-100 bpm] 115 kg (04/11/16 8:29 AM) Weight 40.92 m2 (04/11/16 8:29 AM) Body Mass Index Problem List Condition Effective Dates Status Health Status Informant Hypothyroidism(Confi Active rmed) Ovarian cystic Resolved mass(Confirmed) Sleep Resolved apnea(Confirmed)1 Tear of vaginal Active muscle(Confirmed) 1Does not use CPAP Allergies, Adverse Reactions, Alerts Substance Reaction Severity Status NKDA Active Medications acetaminophen (ANES) Route: IV, Drug form: INJ, ONCE, Stop date: 04/11/16 13:09:00 CDT Start Date: 04/11/16 Stop Date: 04/11/16 Status: Completed ANES acetaminophen 1,000 mg, 2 tab, Route: PO, Drug form: TAB, ONCE, Dosing Weight 115, kg, PRN Alejandro n Score 1-3, Start date: 04/11/16 13:48:00 CDT, Duration: 1 doses or times, Stop date: Limited # of times Notes: Max acetaminophen 4000 mg/day (4 gm/day). (Same as: Tylenol Extra Streng th) Start Date: 04/11/16 Stop Date: 04/11/16 Status: Discontinued ANES albuterol 0.083% inhalation solution 2.49 mg, 3 mL, Route: NEB, Drug form: SOLN, PRN, Dosing Weight 115, kg, PRN Resp iratory Protocol, Start date: 04/11/16 13:48:00 CDT, Duration: 30 day, Stop date : 05/11/16 13:47:00 CDT Notes: SEE RT DOCUMENTATION (Same as: Mitch) Start Date: 04/11/16 Stop Date: 04/11/16 Status: Discontinued ANES albuterol 90 mcg/inh inhalation aerosol 2 puff, Route: INHALER, Drug Form: AERO/A, Dosing Weight 115, kg, Q5Min, PRN Whe ezing, Start date: 04/11/16 13:48:00 CDT, Duration: 4 doses or times, Stop date: Limited # of times Notes: Albuterol 90 microgram/inh 8gm HFAWASTE: Aerosol - Return to Pharmacy [facility] as: Mitch King Start Date: 04/11/16 Stop Date: 04/11/16 Status: Discontinued ANES albuterol 90 mcg/inh inhalation aerosol 2 puff, Route: INHALER, Drug Form: AERO/A, Dosing Weight 115, kg, ONCE, Start da te: 04/11/16 13:48:00 CDT, Stop date: 04/11/16 13:48:00 CDT, On arrival to PACU Notes: Albuterol 90 microgram/inh 8gm HFAWASTE: Aerosol - Return to Pharmacy [facility] as: Mitch King Start Date: 04/11/16 Stop Date: 04/11/16 Status: Ordered ANES dexamethasone 4 mg, 1 mL, Route: IVP, Drug form: INJ, ONCE, Dosing Weight 115, kg, PRN Nausea & Vomiting, Start date: 04/11/16 13:48:00 CDT Notes: Concentration: 4mg/ml Start Date: 04/11/16 Stop Date: 04/11/16 Status: Discontinued ANES fentaNYL 50 microgram, 1 mL, Route: IVP, Drug form: INJ, Q5Min, Dosing Weight 115, kg, NC N Pain Score 7-10, Start date: 04/11/16 13:48:00 CDT, Duration: 2 doses or times , Stop date: Limited # of times Notes: (Same as: Sublimaze) Preservative free. Start Date: 04/11/16 Stop Date: 04/11/16 Status: Discontinued ANES fentaNYL 25 microgram, 0.5 mL, Route: IVP, Drug form: INJ, Q5Min, Dosing Weight 115, kg, PRN Pain Score 4-6, Start date: 04/11/16 13:48:00 CDT, Duration: 4 doses or time s, Stop date: Limited # of times Notes: (Same as: Sublimaze) Preservative free. Start Date: 04/11/16 Stop Date: 04/11/16 Status: Discontinued ANES flumazenil 0.2 mg, 2 mL, Route: IVP, Drug form: INJ, PRN, Dosing Weight 115, kg, PRN Benzod iazepine Reversal, Initial dose, Start date: 04/11/16 13:48:00 CDT, Duration: 30 day, Stop date: 05/11/16 13:47:00 CDT Notes: (Same as: Romazicon) Start Date: 04/11/16 Stop Date: 04/11/16 Status: Discontinued ANES hydrALAZINE 10 mg, 0.5 mL, Route: IVP, Drug form: INJ, Q20Min, Dosing Weight 115, kg, PRN El evated BP, Start date: 04/11/16 13:48:00 CDT, Duration: 2 doses or times, Stop d ate: Limited # of times Notes: (Same as: Apresoline)Push over 5 minutes Start Date: 04/11/16 Stop Date: 04/11/16 Status: Discontinued ANES HYDROmorphone 0.5 mg, 0.5 mL, Route: IVP, Drug form: INJ, Q5Min, Dosing Weight 115, kg, PRN Pa in Score 7-10, Start date: 04/11/16 13:48:00 CDT, Duration: 4 doses or times, St op date: Limited # of times Start Date: 04/11/16 Stop Date: 04/11/16 Status: Discontinued ANES labetalol 10 mg, 2 mL, Route: IVP, Drug form: INJ, Q5Min, Dosing Weight 115, kg, PRN [place] yodit BP, Start date: 04/11/16 13:48:00 CDT, Duration: 5 doses or times, Stop date : Limited # of times Notes: (Same as: Normodyne, Trandate)Push over 2 minutes Give bolus over 2-3 mi nutes. Start Date: 04/11/16 Stop Date: 04/11/16 Status: Discontinued ANES levalbuterol 0.63 mg, 3 mL, Route: NEB, Drug form: SOLN, Q20Min, Dosing Weight 115, kg, PRN W heezing, Start date: 04/11/16 13:48:00 CDT, Duration: 4 doses or times, Stop dulce e: Limited # of times Notes: SEE RT DOCUMENTATION (Same as:Xopenex)Non-Formulary Start Date: 04/11/16 Stop Date: 04/11/16 Status: Discontinued ANES naloxone 0.4 mg, 1 mL, Route: IVP, Drug form: INJ, Q2MIN, Dosing Weight 115, kg, PRN Narc otic Reversal, Start date: 04/11/16 13:48:00 CDT, Duration: 8 doses or times, St op date: Limited # of times Notes: Same as Narcan Start Date: 04/11/16 Stop Date: 04/11/16 Status: Discontinued ANES ondansetron 4 mg, 2 mL, Route: IVP, Drug form: INJ, ONCE, Dosing Weight 115, kg, PRN Nausea & Vomiting, Start date: 04/11/16 13:48:00 CDT Notes: (Same as: Nicolas) MEDICATION WASTE Product Size: 4 mgProduct Was yodit: ___ mg Start Date: 04/11/16 Stop Date: 04/11/16 Status: Discontinued ANES oxyCODONE 5 mg, 5 mL, Route: NG, Drug form: LIQ, Q4H, Dosing Weight 115, kg, PRN Pain Scor e 4-6, Start date: 04/11/16 13:48:00 CDT, Duration: 30 day, Stop date: 05/11/16 13:47:00 CDT Notes: (Same as: 'Roxicodone) Start Date: 04/11/16 Stop Date: 04/11/16 Status: Discontinued ANES oxyCODONE 5 mg, 1 tab, Route: PO, Drug form: TAB, Q4H, Dosing Weight 115, kg, PRN Pain Sco re 4-6, Start date: 04/11/16 13:48:00 CDT, Duration: 30 day, Stop date: 05/11/16 13:47:00 CDT Notes: (Same as: Roxicodone) Start Date: 04/11/16 Stop Date: 04/11/16 Status: Discontinued ANES oxyCODONE 10 mg, 2 tab, Route: PO, Drug form: TAB, Q4H, Dosing Weight 115, kg, PRN Pain Sc ore 7-10, Start date: 04/11/16 13:48:00 CDT, Duration: 30 day, Stop date: 13:47:00 CDT Notes: (Same as: Roxicodone) Start Date: 04/11/16 Stop Date: 04/11/16 Status: Discontinued ANES oxyCODONE 10 mg, 2 tab, Route: NG, Drug form: TAB, Q4H, Dosing Weight 115, kg, PRN Pain Sc ore 7-10, Start date: 04/11/16 13:48:00 CDT, Duration: 30 day, Stop date: 13:47:00 CDT Notes: (Same as: Roxicodone) Start Date: 04/11/16 Stop Date: 04/11/16 Status: Discontinued ANES promethazine + sodium chloride 0.9% INJ 50 mL 6.25 mg, 0.25 mL, Route: IVPB, ONCE, Dosing Weight 115, kg, PRN Nausea & Vomiting, Start date: 04/11/16 13:48:00 CDT Notes: Do not give IV push. (Same as: Phenergan) Start Date: 04/11/16 Stop Date: 04/11/16 Status: Completed ANES scopolamine 1.5 mg transdermal film 1 patch, Route: TOP, Drug Form: ERFILM, Dosing Weight 115, kg, ONCE, Apply behin d ear. Avoid use in elderly., Start date: 04/11/16 13:48:00 CDT, Stop date: 09/25 13:48:00 CDT Notes: Change patch every 72 hours (Same as: Transderm-Scop) Start Date: 04/11/16 Stop Date: 04/11/16 Status: Ordered ceFAZolin (ANES) Route: IV, Drug form: INJ, ONCE, Stop date: 04/11/16 13:09:00 CDT Start Date: 04/11/16 Stop Date: 04/11/16 Status: Completed dexamethasone (ANES) Route: IV, Drug form: INJ, ONCE, Stop date: 04/11/16 13:09:00 CDT Start Date: 04/11/16 Stop Date: 04/11/16 Status: Completed fentaNYL (ANES) Route: IV, Drug form: INJ, ONCE, Stop date: 04/11/16 13:04:00 CDT Start Date: 04/11/16 Stop Date: 04/11/16 Status: Completed hydromorphone (ANES) Route: IV, Drug form: INJ, ONCE, Stop date: 04/11/16 13:09:00 CDT Start Date: 04/11/16 Stop Date: 04/11/16 Status: Completed Lactated Ringers Injection IV 1000 mL 1,000 mL, Rate: 25 ml/hr, Infuse over: 40 hr, Route: IV, Dosing Weight 115 kg, T otal Volume: 1,000, Start date: 04/11/16 10:05:00 CDT, Duration: 30 day, Stop da te: 05/11/16 10:04:00 CDT Start Date: 04/11/16 Stop Date: 04/11/16 Status: Discontinued lidocaine (ANES) Route: IV, Drug form: INJ, ONCE, Stop date: 04/11/16 13:04:00 CDT Start Date: 04/11/16 Stop Date: 04/11/16 Status: Completed LR 1000 mL INJ (ANES) Route: IV, Total Volume: 1,000, Start date: 04/11/16 12:06:00 CDT, Stop date: 13:06:00 CDT Start Date: 04/11/16 Stop Date: 04/11/16 Status: Completed midazolam (ANES) Route: IV, Drug form: SOLN, ONCE, Stop date: 04/11/16 13:04:00 CDT Start Date: 04/11/16 Stop Date: 04/11/16 Status: Completed ondansetron (ANES) Route: IV, Drug form: INJ, ONCE, Stop date: 04/11/16 13:09:00 CDT Start Date: 04/11/16 Stop Date: 04/11/16 Status: Completed propofol (ANES) Route: IV, Drug form: INJ, ONCE, Stop date: 04/11/16 13:04:00 CDT Start Date: 04/11/16 Stop Date: 04/11/16 Status: Completed Sodium Chloride 0.9% IV 1000 mL 1,000 mL, Rate: 25 ml/hr, Infuse over: 40 hr, Route: IV, Dosing Weight 115 kg, T otal Volume: 1,000, Start date: 04/11/16 10:05:00 CDT, Duration: 30 day, Stop da te: 05/11/16 10:04:00 CDT Start Date: 04/11/16 Stop Date: 04/11/16 Status: Discontinued Results HEMATOLOGY Most recent to 1 oldest [Reference Range]: WBC [3.7-10.4 K/CMM] 5.3 K/CMM (04/11/16 9:00 AM) RBC [4.20-5.40 4.54 M/CMM M/CMM] (04/11/16 9:00 AM) Hgb [12.0-16.0 g/dL] 13.3 g/dL (04/11/16 9:00 AM) Hct [36.0-48.0 %] 40.4 % (04/11/16 9:00 AM) MCV [80.0-98.0 fL] 88.9 fL (04/11/16 9:00 AM) MCH [27.0-31.0 pg] 29.3 pg (04/11/16 9:00 AM) MCHC [32.0-36.0 33.0 g/dL g/dL] (04/11/16 9:00 AM) RDW [11.5-14.5 %] 14.3 % (04/11/16 9:00 AM) Platelet [133-450 232 K/CMM K/CMM] (04/11/16 9:00 AM) MPV [7.4-10.4 fL] 7.2 fL *LOW* (04/11/16 9:00 AM) Segs [45.0-75.0 %] 58.8 % (04/11/16 9:00 AM) Lymphocytes 28.0 % [20.0-40.0 %] (04/11/16 9:00 AM) Monocytes [2.0-12.0 9.7 % %] (04/11/16 9:00 AM) Eosinophils [0.0-4.0 2.7 % %] (04/11/16 9:00 AM) Basophils [0.0-1.0 0.8 % %] (04/11/16 9:00 AM) Segs-Bands # 3.1 K/CMM [1.5-8.1 K/CMM] (04/11/16 9:00 AM) Lymphocytes # 1.5 K/CMM [1.0-5.5 K/CMM] (04/11/16 9:00 AM) Monocytes # [0.0-0.8 0.5 K/CMM K/CMM] (04/11/16 9:00 AM) Eosinophils # 0.1 K/CMM [0.0-0.5 K/CMM] (04/11/16 9:00 AM) Immunizations No data available for this section Procedures Procedure Date Related Diagnosis Body Site Bilateral tubal ligation 2006 Cholecystectomy 2006 Hysterectomy Oophorectomy Operation Social History Social History Type Response Alcohol Current, Type Liquor. Frequency: 1-2 times per week. Smoking Status Never smoker; Exposure to Tobacco Smoke None; Cigarette Smoking Last 365 Days No; Reg Smoking Cessation Counseling No Assessment and Plan No data available for this section
--- OUTSIDE RECORDS SUMMARY | 2019-01-14 13:02 | XMS REPORT | Encounter Summary ---
Author Organization Unknown Address [address] [place] [id number] Phone [phone] Reason for Visit Medical Complaint Instructions 1. Acute maxillary sinusitis Augmentin 875 mg-125 mg tablet prednisone 20 mg tablet 2. Eustachian tube disorder Discussion Note: None recorded. Patient educational handouts: No information available. Plan of Care Patient Instructions Take antibiotic as prescribed. Ok to take flonase and zyrtec. Handwashing. Increase fluid intake and plenty of rest. May take tynenol/motrin for pain. If no improvement in 3 days, or worsening of symptoms, see primary care physician or call clinic. Reminders Provider Appointments None recorded. Lab None recorded. Referral None recorded. Procedures None recorded. Surgeries None recorded. Imaging None recorded. Medications Name Start Date Augmentin 875 mg-125 mg tablet Take 1 tablet every 12 hours by oral route with meals for 7 days. fluticasone 50 mcg/actuation nasal spray,suspension prednisone 20 mg tablet Take 1 tablet twice a day by oral route with meals for 3 days. Synthroid 300 mcg tablet Medications Administered None recorded. Vitals Height Weight BMI Blood Pressure 5 ft 5 in 218 lbs 36.3 116/80 Lab Results None recorded. Allergies Name Reaction Severity Onset NKDA Problems Name Status Onset Date Source Hypothyroidism [...] History Smoking Status Never Smoker Past Encounters 10/20/2016 Acute Maxillary Sinusitis; Eustachian Tube Disorder Janina Stephens, [employer]: [address] [place] [address], Ph. History of Present Illness [id number] Reported By: Patient HPI: Location: head/sinuses. Quality: [...] vomiting, no diarrhea, no rash, no nausea, no fever, no muscle aches, no headache, green sputum Review of Systems Basic Reported By: Patient Constitutional: Constitutional: no fever Eyes: Eyes: no eye complaints Scgl-Tgir-Tcpyw-Throat: Ears: ; pressure ears. Nose: nose/sinus problems. Mouth/Throat: no sore throat, no bleeding gums, no mouth complaints, no teeth problems Cardiovascular: Cardiovascular: no chest pain, no shortness of breath, no known heart murmur Respiratory: Respiratory: cough Gastrointestinal: Gastrointestinal: no abdominal pain, no vomiting / diarrhea Genitourinary: Genitourinary: no urinary complaints, no discharge Musculoskeletal: Musculoskeletal: no muscle aches, no muscle weakness, no arthralgias/joint pain, no back pain Skin: Skin: no abnormal / changing mole, no jaundice, no rashes Neurologic: Neurologic: no loss of consciousness, no weakness, no numbness, no seizures, no dizziness, no headaches Physical Exam Adult Basic, 14-21 Yr Male, Adult Female Complete Reported By: Patient Constitutional: General Appearance: well-nourished, well-developed. Level of Distress: NAD Eyes: Lids and Conjunctivae: non-injected, no discharge. Pupils: equal size, round, reactive to light. Sclerae: non-icteric Xgn-Fxfh-Ctsvk-Throat: Ears: no lesions on external ear, no outer ear tenderness, EACs clear, TMs clear, TM mobility normal, middle ear fluid. Nose: no lesions on external nose, nares patent, no septal deviation, nasal passages clear, sinus tenderness, nasal discharge--purulent, post nasal drip. Lips, Teeth, and Gums: no mouth or lip ulcers, no bleeding gums, normal dentition. Oropharynx: moist mucous membranes, no exudates, tonsils not enlarged, erythema Neck: Lymph Nodes: cervical lympadenopathy. Thyroid: no enlargement, non-tender, no nodules, no asymmetry Lungs: Respiratory effort: no tachypnea. Auscultation: clear to auscultation, no wheezing, no rales/crackles, no rhonchi, no retractions Cardiovascular: Heart Auscultation: no murmurs, no gallops, no rub. Apical impulse: not displaced. Rate and rhythm: regular
--- OUTSIDE RECORDS SUMMARY | 2019-01-14 13:02 | XMS REPORT | Summary of Care ---
Author Author [facility] Organization [facility] Address Unknown Phone Unavailable Encounter YOGESH Flores(CHUCK) [id number] Date(s): 05/10/15 - 05/10/15 [facility] [address] [place] [address]- Discharge Disposition: Home Attending Physician: Kierra Gant MD Referring Physician: Kierra Gant MD Vital Signs 1 2 3 Most recent to oldest [Reference Range]: 167.64 cm (05/09/15 7:56 AM) Height 1 2 3 Most recent to oldest [Reference Range]: 97.8 DegF (05/09/15 7:57 AM) Temperature Oral [96.4-99.1 DegF] 1 2 3 Most recent to oldest [Reference Range]: 102/57 mmHg (05/10/15 5:45 PM) 96/51 mmHg (05/10/15 5:30 PM) 106/57 mmHg (05/10/15 5:00 PM) Blood Pressure [90-140/60-90 mmHg] 1 2 3 Most recent to oldest [Reference Range]: 14 BRMIN (05/10/15 4:00 PM) 13 BRMIN *LOW* (05/10/15 3:45 PM) 12 BRMIN *LOW* (05/10/15 3:30 PM) Respiratory Rate [14-20 BRMIN] 1 2 3 Most recent to oldest [Reference Range]: 73 bpm (05/09/15 7:57 AM) Peripheral Pulse Rate [60-100 bpm] 1 2 3 Most recent to oldest [Reference Range]: 102.756 kg (05/09/15 7:56 AM) Weight 1 2 3 Most recent to oldest [Reference Range]: 36.56 m2 (05/09/15 7:56 AM) Body Mass Index Problem List Condition Effective Dates Status Health Status Informant Ovarian cystic Active mass(Confirmed) Sleep Active apnea(Confirmed)1 1Does not use CPAP Allergies, Adverse Reactions, Alerts Substance Reaction Severity Status NKDA Active Medications acetaminophen 1,000 mg, Route: IVPB, Drug form: INJ, ONCE, Dosing Weight 102.756, kg, PRN Pain Score 1-3, Start date: 05/10/15 16:14:00, Duration: 1 doses or times, Stop date: Limited # of times Start Date: 05/10/15 Stop Date: 05/10/15 Status: Discontinued fentaNYL 50 microgram, Route: IVP, Q5Min, Dosing Weight 102.756, kg, PRN Pain Score 7-10, Start date: 05/10/15 16:14:00, Duration: 2 doses or times, Stop date: Limited # of times Start Date: 05/10/15 Stop Date: 05/10/15 Status: Discontinued flumazenil 0.2 mg, Route: IVP, PRN, Dosing Weight 102.756, kg, PRN Benzodiazepine Reversal, Initial dose, Start date: 05/10/15 16:14:00, Duration: 30 day, Stop date: 06/09 16:13:00 Start Date: 05/10/15 Stop Date: 05/10/15 Status: Discontinued hydromorphone 0.5 mg, Route: IVP, Q5Min, Dosing Weight 102.756, kg, PRN Pain Score 7-10, Start date: 05/10/15 16:14:00, Duration: 4 doses or times, Stop date: Limited # of ti mes Start Date: 05/10/15 Stop Date: 05/10/15 Status: Discontinued Lactated Ringers Injection IV 1000 mL 1,000 mL, Rate: 25 ml/hr, Infuse over: 40 hr, Route: IV, Dosing Weight 102.756 k g, Total Volume: 1,000, Start date: 05/10/15 12:10:00, Duration: 30 day, Stop da te: 06/09/15 12:09:00 Start Date: 05/10/15 Stop Date: 05/10/15 Status: Discontinued meperidine 12.5 mg, Route: IVP, Q30Min, Dosing Weight 102.756, kg, PRN Other -See Comment, For shivering, Start date: 05/10/15 16:14:00, Duration: 2 doses or times, Stop d ate: Limited # of times Start Date: 05/10/15 Stop Date: 05/10/15 Status: Discontinued naloxone 0.04 mg, Route: IVP, Q2MIN, Dosing Weight 102.756, kg, PRN Narcotic Reversal, St art date: 05/10/15 16:14:00, Duration: 8 doses or times, Stop date: Limited # of times Start Date: 05/10/15 Stop Date: 05/10/15 Status: Discontinued ondansetron 4 mg, Route: IVP, ONCE, Dosing Weight 102.756, kg, PRN Nausea & Vomiting, Start date: 05/10/15 16:14:00 Start Date: 05/10/15 Stop Date: 05/10/15 Status: Discontinued oxyCODONE 5 mg, Route: PO, Drug form: TAB, Q4H, Dosing Weight 102.756, kg, PRN Pain Score 4-6, Start date: 05/10/15 16:14:00, Duration: 30 day, Stop date: 06/09/15 16:13: 00 Start Date: 05/10/15 Stop Date: 05/10/15 Status: Discontinued oxyCODONE 5 mg immediate release 10 mg, Route: PO, Drug form: TAB, ONCE, Dosing Weight 102.756, kg, Start date: 1 16:20:00, Stop date: 05/10/15 16:20:00 Start Date: 05/10/15 Stop Date: 05/10/15 Status: Completed Synthroid 300 mcg (0.3 mg) oral tablet 300 microgram=1 tab, PO, Daily, # 30 tab, 0 Refill(s) Start Date: 05/09/15 Status: Ordered Results HEMATOLOGY Most recent to 1 oldest [Reference Range]: WBC [3.7-10.4 K/CMM] 6.0 K/CMM (05/09/15 8:22 AM) RBC [4.20-5.40 4.12 M/CMM M/CMM] *LOW* (05/09/15 8:22 AM) Hgb [12.0-16.0 g/dL] 12.9 g/dL (05/09/15 8:22 AM) Hct [36.0-48.0 %] 39.7 % (05/09/15 8:22 AM) MCV [80.0-98.0 fL] 96.4 fL (05/09/15 8:22 AM) MCH [27.0-31.0 pg] 31.2 pg *HI* (05/09/15 8:22 AM) MCHC [32.0-36.0 32.4 g/dL g/dL] (05/09/15 8:22 AM) RDW [11.5-14.5 %] 14.0 % (05/09/15 8:22 AM) Platelet [133-450 209 K/CMM K/CMM] (05/09/15 8:22 AM) MPV [7.4-10.4 fL] 7.6 fL (05/09/15 8:22 AM) Segs [45.0-75.0 %] 63.3 % (05/09/15 8:22 AM) Lymphocytes 25.0 % [20.0-40.0 %] (05/09/15 8:22 AM) Monocytes [2.0-12.0 8.9 % %] (05/09/15 8:22 AM) Eosinophils [0.0-4.0 2.1 % %] (05/09/15 8:22 AM) Basophils [0.0-1.0 0.7 % %] (05/09/15 8:22 AM) Segs-Bands # 3.8 K/CMM [1.5-8.1 K/CMM] (05/09/15 8:22 AM) Lymphocytes # 1.5 K/CMM [1.0-5.5 K/CMM] (05/09/15 8:22 AM) Monocytes # [0.0-0.8 0.5 K/CMM K/CMM] (05/09/15 8:22 AM) Eosinophils # 0.1 K/CMM [0.0-0.5 K/CMM] (05/09/15 8:22 AM) Immunizations No data available for this section Procedures Procedure Date Related Diagnosis Body Site Bilateral tubal ligation 2006 Cholecystectomy 2006 Hysterectomy Operation Social History Social History Type Response Alcohol Current, Type Liquor. Frequency: 1-2 times per month. Smoking Status Never smoker; Type: Cigarettes; Exposure to Tobacco Smoke None; Cigarette Smoking Last 365 Days No; Reg Smoking Cessation Counseling No Assessment and Plan No data available for this section
--- OUTSIDE RECORDS SUMMARY | 2019-01-14 13:02 | XMS REPORT | Summary of Care ---
Author Author [facility] Organization [facility] Address Unknown Phone Unavailable Encounter YOGESH Flores(CHUCK) [id number] Date(s): 03/21/16 - 03/21/16 [facility] [address] [place] [address]- [phone] Discharge Diagnosis: Generalized abdominal pain Discharge Diagnosis: Vomiting, unspecified Discharge Diagnosis: Diarrhea, unspecified Discharge Disposition: Home or Self Care Attending Physician: Aaron Prieto MD Vital Signs 1 2 3 Most recent to oldest [Reference Range]: 167.64 cm (03/21/16 1:40 PM) Height 98.3 DegF (03/21/16 8:45 PM) 98.7 DegF (03/21/16 6:30 PM) 98.4 DegF (03/21/16 1:40 PM) Temperature Oral [96.4-99.1 DegF] 117/58 mmHg (03/21/16 8:45 PM) 106/67 mmHg (03/21/16 6:30 PM) 127/89 mmHg (03/21/16 1:40 PM) Blood Pressure [90-140/60-90 mmHg] 18 BRMIN (03/21/16 8:45 PM) 15 BRMIN (03/21/16 6:30 PM) 18 BRMIN (03/21/16 1:40 PM) Respiratory Rate [14-20 BRMIN] 78 bpm (03/21/16 8:45 PM) 74 bpm (03/21/16 6:30 PM) 98 bpm (03/21/16 1:40 PM) Peripheral Pulse Rate [60-100 bpm] 95.455 kg (03/21/16 1:40 PM) Weight 33.97 m2 (03/21/16 1:40 PM) Body Mass Index Problem List Condition Effective Dates Status Health Status Informant Hypothyroidism(Confi Active rmed) Ovarian cystic Active mass(Confirmed) Sleep Active apnea(Confirmed)1 1Does not use CPAP Allergies, Adverse Reactions, Alerts Substance Reaction Severity Status NKDA Active Medications Bentyl 20 mg oral tablet 20 mg=1 tab, PO, TID-Before Meals, # 6 tab, 0 Refill(s) Start Date: 03/21/16 Stop Date: 03/23/16 Status: Ordered ciprofloxacin 500 mg oral tablet 500 mg=1 tab, PO, Q12H, X 7 day, # 14 tab, 0 Refill(s) Start Date: 03/21/16 Stop Date: 03/28/16 Status: Ordered famotidine 20 mg, 2 mL, Route: IVP, Drug form: INJ, ONCE, Dosing Weight 95.455, kg, Priorit y: STAT, Start date: 03/21/16 15:14:00 CDT, Stop date: 03/21/16 15:14:00 CDT Notes: (Same as: Pepcid)Can be dilute in 5-10cc NS IVP: Slow IV push over at le ast 2 minutes. Start Date: 03/21/16 Stop Date: 03/21/16 Status: Completed Flagyl 500 mg oral tablet 500 mg=1 tab, PO, Q8H, X 7 day, # 21 tab, 0 Refill(s) Start Date: 03/21/16 Stop Date: 03/28/16 Status: Ordered GI cocktail 30 mL, Route: PO, Drug Form: SUSP, Dosing Weight 95.455, kg, ONCE, STAT, Start d ate: 03/21/16 15:14:00 CDT, Stop date: 03/21/16 15:14:00 CDT Notes: G.I. Cocktail=antacid with simethicone 22.5 mL - lidocaine viscous 7.5 mL Start Date: 03/21/16 Stop Date: 03/21/16 Status: Completed morphine Sulfate 4 mg, 2 mL, Route: IVP, Drug form: INJ, ONCE, Dosing Weight 95.455, kg, Priority : STAT, Start date: 03/21/16 15:14:00 CDT, Stop date: 03/21/16 15:14:00 CDT Notes: (Same as:MORPhine Sulfate) Start Date: 03/21/16 Stop Date: 03/21/16 Status: Completed morphine Sulfate 4 mg, 2 mL, Route: IVP, Drug form: INJ, ONCE, Dosing Weight 95.455, kg, Priority : STAT, Start date: 03/21/16 17:26:00 CDT, Stop date: 03/21/16 17:26:00 CDT Notes: (Same as:MORPhine Sulfate) Start Date: 03/21/16 Stop Date: 03/21/16 Status: Completed ondansetron 4 mg, 2 mL, Route: IVP, Drug form: INJ, ONCE, Dosing Weight 95.455, kg, Priority : STAT, Start date: 03/21/16 15:14:00 CDT, Stop date: 03/21/16 15:14:00 CDT Notes: (Same as: Nicolas) MEDICATION WASTE Product Size: 4 mgProduct Was yodit: ___ mg Start Date: 03/21/16 Stop Date: 03/21/16 Status: Completed Saline Flush 0.9% 10 mL, Route: IVP, Drug Form: INJ, Dosing Weight 98.636, kg, PRN, PRN Line Flush , Start date: 03/21/16 13:44:00 CDT, Duration: 30 day, Stop date: 04/20/16 13:43 :00 CDT Notes: (Same as: BD Posiflush) Start Date: 03/21/16 Stop Date: 03/21/16 Status: Discontinued Saline Flush 0.9% 10 mL, Route: IVP, Drug Form: INJ, Dosing Weight 95.455, kg, PRN, PRN Line Flush , Start date: 03/21/16 15:14:00 CDT, Duration: 30 day, Stop date: 04/20/16 15:13 :00 CDT Notes: (Same as: BD Posiflush) Start Date: 03/21/16 Stop Date: 03/21/16 Status: Discontinued Sodium Chloride 0.9% (Bolus) IV 1,000 mL, 2,000 ml/hr, Infuse Over: 30 minutes, Route: IV, 1,000, Drug form: INJ , ONCE, Priority: STAT, Dosing Weight 95.455 kg, Start date: 03/21/16 15:14:00 C DT, Duration: 1 doses or times, Stop date: 03/21/16 15:14:00 CDT Start Date: 03/21/16 Stop Date: 03/21/16 Status: Completed Zofran 4 mg, 2 mL, Route: IVP, Drug form: INJ, ONCE, Dosing Weight 95.455, kg, Priority : STAT, Start date: 03/21/16 17:26:00 CDT, Stop date: 03/21/16 17:26:00 CDT Notes: (Same as: Zofran) MEDICATION WASTE Product Size: 4 mgProduct Was yodit: ___ mg Start Date: 03/21/16 Stop Date: 03/21/16 Status: Completed Results ELECTROLYTES Most recent to 1 oldest [Reference Range]: Sodium Lvl [135-145 131 mEq/L mEq/L] *LOW* (03/21/16 1:50 PM) Potassium Lvl 3.7 mEq/L [3.5-5.1 mEq/L] (03/21/16 1:50 PM) Chloride Lvl [95-109 101 mEq/L mEq/L] (03/21/16 1:50 PM) CO2 [24-32 mEq/L] 20 mEq/L *LOW* (03/21/16 1:50 PM) AGAP [10.0-20.0 13.7 mEq/L mEq/L] (03/21/16 1:50 PM) CHEM PANEL Most recent to 1 oldest [Reference Range]: Creatinine Lvl 0.79 mg/dL [0.50-1.40 mg/dL] (03/21/16 1:50 PM) eGFR 90 mL/min/1.73m2 1 *NA* (03/21/16 1:50 PM) BUN [7-22 mg/dL] 12 mg/dL (03/21/16 1:50 PM) B/C Ratio [6-25] 15 (03/21/16 1:50 PM) Glucose Lvl [70-99 132 mg/dL mg/dL] *HI* (03/21/16 1:50 PM) Total Protein 9.1 g/dL [6.4-8.4 g/dL] *HI* (03/21/16 1:50 PM) Albumin Lvl [3.5-5.0 4.1 g/dL g/dL] (03/21/16 1:50 PM) Globulin [2.7-4.2 5.0 g/dL g/dL] *HI* (03/21/16 1:50 PM) A/G Ratio [0.7-1.6] 0.8 (03/21/16 1:50 PM) Calcium Lvl 9.1 mg/dL [8.5-10.5 mg/dL] (03/21/16 1:50 PM) ALT [0-65 unit/L] 57 unit/L (03/21/16 1:50 PM) AST [0-37 unit/L] 42 unit/L *HI* (03/21/16 1:50 PM) Alk Phos [39-136 114 unit/L unit/L] (03/21/16 1:50 PM) Bili Total [0.2-1.3 0.5 mg/dL mg/dL] (03/21/16 1:50 PM) Amylase Lvl [25-115 209 unit/L unit/L] *HI* (03/21/16 1:50 PM) Lipase Lvl [73-393 132 unit/L unit/L] (03/21/16 1:50 PM) 1Result Comment: The eGFR is calculated using the [...] from the National Kidney Disease Education Program ( NKDEP) which additionally recommends that when the eGFR is used in patients with extremes of body mass index for purposes of drug dosing, the eGFR should be mul tiplied by the estimated BMI. URINE CHEM Most recent to 1 oldest [Reference Range]: U Preg [Negative] Negative (03/21/16 4:53 PM) URINE AND STOOL Most recent to 1 oldest [Reference Range]: UA Turbidity [Clear] Clear (03/21/16 4:53 PM) UA Color Ltyellow *NA* (03/21/16 4:53 PM) UA pH [5.0-8.0] 6.0 (03/21/16 4:53 PM) UA Spec Grav 1.039 [<=1.030] *HI* (03/21/16 4:53 PM) UA Glucose [Negative Negative mg/dL mg/dL] *NA* (03/21/16 4:53 PM) UA Blood [Negative] Small *ABN* (03/21/16 4:53 PM) UA Ketones [Negative Negative mg/dL mg/dL] *NA* (03/21/16 4:53 PM) UA Protein [Negative Negative mg/dL mg/dL] (03/21/16 4:53 PM) UA Urobilinogen <=1.0 mg/dL [0.1-1.0 mg/dL] *NA* (03/21/16 4:53 PM) UA Bili [Negative] Negative *NA* (03/21/16 4:53 PM) UA Leuk Est Moderate [Negative] *ABN* (03/21/16 4:53 PM) UA Nitrite Negative [Negative] (03/21/16 4:53 PM) UA WBC [0-5 /HPF] 5 /HPF (03/21/16 4:53 PM) UA RBC [0-2 /HPF] 2 /HPF (03/21/16 4:53 PM) UA Sq Epi [Few /LPF] Occasional /LPF *NA* (03/21/16 4:53 PM) HEMATOLOGY Most recent to 1 oldest [Reference Range]: WBC [3.7-10.4 K/CMM] 8.3 K/CMM (03/21/16 1:50 PM) RBC [4.20-5.40 4.83 M/CMM M/CMM] (03/21/16 1:50 PM) Hgb [12.0-16.0 g/dL] 14.2 g/dL (03/21/16 1:50 PM) Hct [36.0-48.0 %] 42.5 % (03/21/16 1:50 PM) MCV [80.0-98.0 fL] 88.0 fL (03/21/16 1:50 PM) MCH [27.0-31.0 pg] 29.5 pg (03/21/16 1:50 PM) MCHC [32.0-36.0 33.5 g/dL g/dL] (03/21/16 1:50 PM) RDW [11.5-14.5 %] 14.7 % *HI* (03/21/16 1:50 PM) Platelet [133-450 281 K/CMM K/CMM] (03/21/16 1:50 PM) MPV [7.4-10.4 fL] 7.1 fL *LOW* (03/21/16 1:50 PM) Segs [45.0-75.0 %] 71.8 % (03/21/16 1:50 PM) Lymphocytes 20.1 % [20.0-40.0 %] (03/21/16 1:50 PM) Monocytes [2.0-12.0 6.9 % %] (03/21/16 1:50 PM) Eosinophils [0.0-4.0 0.6 % %] (03/21/16 1:50 PM) Basophils [0.0-1.0 0.6 % %] (03/21/16 1:50 PM) Segs-Bands # 5.9 K/CMM [1.5-8.1 K/CMM] (03/21/16 1:50 PM) Lymphocytes # 1.7 K/CMM [1.0-5.5 K/CMM] (03/21/16 1:50 PM) Monocytes # [0.0-0.8 0.6 K/CMM K/CMM] (03/21/16 1:50 PM) Basophils # [0.0-0.2 0.1 K/CMM K/CMM] (03/21/16 1:50 PM) Immunizations No data available for this section [...]
--- OUTSIDE RECORDS SUMMARY | 2019-01-14 13:02 | XMS REPORT | Summary of Care ---
Author Organization Unknown Address Unknown Phone Unavailable Encounter [facility]) [id number] Date(s): 05/29/14 - 05/29/14 [facility] Outpatient Imaging - [address] [address] [place] Discharge Disposition: Home Physician Attending: Hortencia Gonzales MD Reason for Visit 625.9 - FEM GENITAL SYM Problem List No data available for this section Allergies, Adverse Reactions, Alerts No data available for this section Medications No data available for this section Medications Administered During Your Visit No data available for this section Immunizations No data available for this section
--- OUTSIDE RECORDS SUMMARY | 2019-01-14 13:02 | XMS REPORT | Summary of Care ---
Author Author [facility] Organization [facility] Address Unknown Phone Unavailable Encounter YOGESH Flores(CHUCK) [id number] Date(s): 03/17/16 - 03/17/16 [facility] [address] [place] [address]- Discharge Diagnosis: Vaginal bleeding Discharge Diagnosis: Vaginal discharge Discharge Diagnosis: Acute UTI Discharge Disposition: Home or Self Care Attending Physician: Antoine Stephens DO Vital Signs Most recent to 1 2 oldest [Reference Range]: Height 165.1 cm (03/17/16 2:44 PM) Temperature Oral 98.6 DegF 98.1 DegF [96.4-99.1 DegF] (03/17/16 5:36 PM) (03/17/16 2:44 PM) Blood Pressure 127/70 mmHg 113/77 mmHg [90-140/60-90 mmHg] (03/17/16 5:36 PM) (03/17/16 2:44 PM) Respiratory Rate 19 BRMIN 18 BRMIN [14-20 BRMIN] (03/17/16 5:36 PM) (03/17/16 2:44 PM) Peripheral Pulse 74 bpm 80 bpm Rate [60-100 bpm] (03/17/16 5:36 PM) (03/17/16 2:44 PM) Weight 98.636 kg (03/17/16 2:44 PM) Body Mass Index 36.19 m2 (03/17/16 2:44 PM) Problem List Condition Effective Dates Status Health Status Informant Hypothyroidism(Confi Active rmed) Ovarian cystic Active mass(Confirmed) Sleep Active apnea(Confirmed)1 1Does not use CPAP Allergies, Adverse Reactions, Alerts Substance Reaction Severity Status NKDA Active Medications azithromycin 1,000 mg, 4 tab, Route: PO, Drug form: TAB, ONCE, Dosing Weight 98.636, kg, Star t date: 03/17/16 16:37:00 CDT, Stop date: 03/17/16 16:37:00 CDT Notes: Take 1 hour before or 2 hours after meals.(Same As: Zithromax) Start Date: 03/17/16 Stop Date: 03/17/16 Status: Completed Keflex 500 mg oral capsule 500 mg=1 cap, PO, QID, X 5 day, # 20 cap, 0 Refill(s) Start Date: 03/17/16 Stop Date: 03/22/16 Status: Ordered Rocephin 250 mg, Route: IM, Drug form: PDR/INJ, ONCE, Dosing Weight 98.636, kg, Priority: STAT, Start date: 03/17/16 16:37:00 CDT, Stop date: 03/17/16 16:37:00 CDT Notes: (Same As: Rocephin) Start Date: 03/17/16 Stop Date: 03/17/16 Status: Completed Saline Flush 0.9% 10 mL, Route: IVP, Drug Form: INJ, Dosing Weight 98.636, kg, PRN, PRN Line Flush , Start date: 03/17/16 15:16:00 CDT, Duration: 30 day, Stop date: 04/16/16 15:15 :00 CDT Notes: (Same as: BD Posiflush) Start Date: 03/17/16 Stop Date: 03/17/16 Status: Discontinued Ultram 50 mg oral tablet 50 mg=1 tab, PO, Q6H, PRN pain, No driving while under the influence of this med ication, X 3 day, # 12 tab, 0 Refill(s) Start Date: 03/17/16 Stop Date: 03/20/16 Status: Ordered Results ELECTROLYTES Most recent to 1 oldest [Reference Range]: Sodium Lvl [135-145 135 mEq/L mEq/L] (03/17/16 3:31 PM) Potassium Lvl 3.9 mEq/L [3.5-5.1 mEq/L] (03/17/16 3:31 PM) Chloride Lvl [95-109 103 mEq/L mEq/L] (03/17/16 3:31 PM) CO2 [24-32 mEq/L] 24 mEq/L (03/17/16 3:31 PM) AGAP [10.0-20.0 11.9 mEq/L mEq/L] (03/17/16 3:31 PM) CHEM PANEL Most recent to 1 oldest [Reference Range]: Creatinine Lvl 0.71 mg/dL [0.50-1.40 mg/dL] (03/17/16 3:31 PM) eGFR 102 mL/min/1.73m2 1 *NA* (03/17/16 3:31 PM) BUN [7-22 mg/dL] 12 mg/dL (03/17/16 3:31 PM) B/C Ratio [6-25] 17 (03/17/16 3:31 PM) Glucose Lvl [70-99 86 mg/dL mg/dL] (03/17/16 3:31 PM) Total Protein 8.4 g/dL [6.4-8.4 g/dL] (03/17/16 3:31 PM) Albumin Lvl [3.5-5.0 3.6 g/dL g/dL] (03/17/16 3:31 PM) Globulin [2.7-4.2 4.8 g/dL g/dL] *HI* (03/17/16 3:31 PM) A/G Ratio [0.7-1.6] 0.8 (03/17/16 3:31 PM) Calcium Lvl 8.8 mg/dL [8.5-10.5 mg/dL] (03/17/16 3:31 PM) ALT [0-65 unit/L] 32 unit/L (03/17/16 3:31 PM) AST [0-37 unit/L] 20 unit/L (03/17/16 3:31 PM) Alk Phos [39-136 104 unit/L unit/L] (03/17/16 3:31 PM) Bili Total [0.2-1.3 0.3 mg/dL mg/dL] (03/17/16 3:31 PM) 1Result Comment: The eGFR is calculated [...] mul tiplied by the estimated BMI. URINE AND STOOL Most recent to 1 oldest [Reference Range]: UA Turbidity [Clear] Clear (03/17/16 3:31 PM) UA Color Ltyellow *NA* (03/17/16 3:31 PM) UA pH [5.0-8.0] 6.0 (03/17/16 3:31 PM) UA Spec Grav 1.013 [<=1.030] (03/17/16 3:31 PM) UA Glucose [Negative Negative mg/dL mg/dL] *NA* (03/17/16 3:31 PM) UA Blood [Negative] Moderate *ABN* (03/17/16 3:31 PM) UA Ketones [Negative Negative mg/dL mg/dL] *NA* (03/17/16 3:31 PM) UA Protein [Negative Negative mg/dL mg/dL] (03/17/16 3:31 PM) UA Urobilinogen <=1.0 mg/dL [0.1-1.0 mg/dL] *NA* (03/17/16 3:31 PM) UA Bili [Negative] Negative *NA* (03/17/16 3:31 PM) UA Leuk Est Large [Negative] *ABN* (03/17/16 3:31 PM) UA Nitrite Negative [Negative] (03/17/16 3:31 PM) UA WBC [0-5 /HPF] 36 /HPF *HI* (03/17/16 3:31 PM) UA RBC [0-2 /HPF] 4 /HPF *HI* (03/17/16 3:31 PM) UA Bacteria [None Occasional /HPF Seen /HPF] *NA* (03/17/16 3:31 PM) UA Sq Epi [Few /LPF] Few /LPF *NA* (03/17/16 3:31 PM) UA Mucus [None Seen Few /LPF /LPF] *NA* (03/17/16 3:31 PM) HEMATOLOGY Most recent to 1 oldest [Reference Range]: WBC [3.7-10.4 K/CMM] 8.5 K/CMM (03/17/16 3:31 PM) RBC [4.20-5.40 4.31 M/CMM M/CMM] (03/17/16 3:31 PM) Hgb [12.0-16.0 g/dL] 12.9 g/dL (03/17/16 3:31 PM) Hct [36.0-48.0 %] 38.4 % (03/17/16 3:31 PM) MCV [80.0-98.0 fL] 89.1 fL (03/17/16 3:31 PM) MCH [27.0-31.0 pg] 29.9 pg (03/17/16 3:31 PM) MCHC [32.0-36.0 33.6 g/dL g/dL] (03/17/16 3:31 PM) RDW [11.5-14.5 %] 14.9 % *HI* (03/17/16 3:31 PM) Platelet [133-450 238 K/CMM K/CMM] (03/17/16 3:31 PM) MPV [7.4-10.4 fL] 6.9 fL *LOW* (03/17/16 3:31 PM) Segs [45.0-75.0 %] 63.8 % (03/17/16 3:31 PM) Lymphocytes 25.9 % [20.0-40.0 %] (03/17/16 3:31 PM) Monocytes [2.0-12.0 8.1 % %] (03/17/16 3:31 PM) Eosinophils [0.0-4.0 1.8 % %] (03/17/16 3:31 PM) Basophils [0.0-1.0 0.4 % %] (03/17/16 3:31 PM) Segs-Bands # 5.4 K/CMM [1.5-8.1 K/CMM] (03/17/16 3:31 PM) Lymphocytes # 2.2 K/CMM [1.0-5.5 K/CMM] (03/17/16 3:31 PM) Monocytes # [0.0-0.8 0.7 K/CMM K/CMM] (03/17/16 3:31 PM) Eosinophils # 0.2 K/CMM [0.0-0.5 K/CMM] (03/17/16 3:31 PM) MOLECULAR DIAGNOSTIC Most recent to 1 oldest [Reference Range]: Source APTIMA Endocervix *NA* (03/17/16 4:31 PM) N gonorrhea by Amp Negative Det (APTIMA) *NA* [Negative] (03/17/16 4:31 PM) C trachomatis by Amp Negative Det (APTIMA) *NA* [Negative] (03/17/16 4:31 PM) Immunizations No data available for this [...]
--- NOTE | 2019-01-14 13:06 | Diagnostic Imaging Report ---
EXAM: CT ABDOMEN AND PELVIS with IV CONTRAST DATE: 01/14/2019 Time stamp on Exam: 12:16 PM INDICATION: Right lower quadrant pain with nausea and vomiting COMPARISON: None TECHNIQUE: The abdomen and pelvis were scanned using a multidetector helical scanner. Coronal and sagittal reformations were obtained. Routine protocol performed. Technique manipulation was accomplished to maintain the lowest dose possible to the patient. IV Contrast: 100 cc of Isovue-370 Oral Contrast: None Radiation Dose: Total DLP 814.26 mGy*cm Estimated effective dose: DLP x 0.015 x size factor FINDINGS: LOWER THORAX: No consolidations LIVER: No masses BILIARY: The gallbladder is absent. No ductal dilatation. SPLEEN: No masses PANCREAS: No masses ADRENALS: No nodules KIDNEYS: There is a possible right medial upper pole renal mass measuring 2.9 cm. Limited evaluation of the kidneys is rendered because of the poor contrast bolus. Renal mass protocol CT is recommended for further evaluation. GI TRACT: No distention, wall thickening or evidence of obstruction. The appendix is not visualized. VESSELS: Unremarkable PERITONEUM/RETROPERITONEUM: No free air or fluid LYMPH NODES: No lymphadenopathy REPRODUCTIVE ORGANS: Unremarkable BLADDER: Unremarkable SOFT TISSUES: There is a 4.3 cm periumbilical fat-containing hernia. BONES: No suspicious bone lesions. IMPRESSION: 1. Possible right upper pole renal mass. 2. Renal mass protocol CT is recommended for further evaluation. 3. Periumbilical fat-containing abdominal wall hernia. Signed by: Dr. Greg Kimball DO on 01/14/2019 1:03 PM
--- NOTE | 2019-01-14 13:19 | NUR ---
DR GARDUNO AT BEDSIDE FOR RE-EVAL AND DISCUSSING THE CURRENT PLAN OF CARE WITH PATIENT AND FAMILY,VERBALIZED UNDERSTANDING.
[2019-01-14 13:33] VITALS: BP 142/80
== END 2019-01-14 13:34 | disposition home or self-care (01) ==
LOC: FSED 11:05
DX: R10.31 Right lower quadrant pain (principal); R11.2 Nausea with vomiting, unspecified; A08.4 Viral intestinal infection, unspecified
CPT/HCPCS: 74177; 80053; 81003; 85025; 99284; J2405; J7030